=== PATIENT | female | born 1945 | race Caucasian/White ===

== ENCOUNTER 2020-04-14 22:50 | Emergency (ER) | payer MEDICARE, SELFPAY ==
[2020-04-14 22:51] VITALS: BP 149/75; PULSE 57; RESP 18; TEMP 36.3; O2SAT 99; BMI 24.2
--- NOTE | 2020-04-14 23:03 | CT_ITS ---
STUDY: CT ABDOMEN AND PELVIS WITHOUT CONTRAST REASON FOR EXAM: Female, 74 years old. LOW ABDOMEN PAIN,UTI DX 3 DAYS AG RADIATION DOSAGE (If Supplied By Facility): CTDIvol = ( 6.29 ) mGy, DLP = ( 322.37 ) mGycm TECHNIQUE: Transaxial images were obtained from the dome of the diaphragm to the symphysis pubis without oral contrast, and without intravenous contrast. Sagittal and coronal images were reconstructed. Individualized dose optimization techniques were used for this CT. COMPARISON: None. FINDINGS: There is pneumoperitoneum which raises suspicion of perforated bowel. There is thickening of the stomach antrum with pockets of air in the vicinity suggesting perforated gastric ulcer. Small bowel is unremarkable. Appendix is not identified. Liver, gallbladder, pancreas and spleen are unremarkable. Adrenal glands and kidneys are unremarkable. Uterus is intact. There is a small amount of ascites. There is NO abscess. Images of the lower thorax demonstrate atelectasis at the lung bases. There is a calcified granuloma at the RIGHT lung base measuring [address]/Abdomen/Pelvis without Cont IMPRESSION: There is pneumoperitoneum which raises suspicion of perforated bowel. There is thickening of the stomach antrum with pockets of air in the vicinity suggesting perforated gastric ulcer. Small bowel is unremarkable. There is diverticulosis of the sigmoid and LEFT colon. There is NO diverticulitis or colitis. Appendix is not identified. There is a small amount of ascites. There is NO abscess. N.B. : The above information has been verbally conveyed by Rubio Shaw MD to Dilip Olguin MD, on 04/15/2020 00:32:20 (ET). Electronically Signed: Rubio Shaw MD at 0:34 EDT , Service support ,
--- NOTE | 2020-04-14 23:04 | ED.VIS.GEN ---
History of Present Illness Chief Complaint: Abd Pain Narrative: This is a 74-year-old female who presents with abdominal pain. Patient does have a history of dementia and family provides much of the history. Patient has had about 2 to 3 days of intermittent colicky lower abdominal pain. She was seen at an urgent care. She was diagnosed with a UTI and prescribed Macrobid. No fevers. No vomiting or diarrhea. Her pain was worse tonight so she was brought in. Past Medical History - Allergies and Home Meds Allergies/Adverse Reactions: Allergies Penicillins Allergy (Intermediate, Verified 04/14/20 22:52) Hives clindamycin Adverse Reaction (Verified 04/14/20 22:52) Vomiting Primary Care Physician: Care Physician,No Primary [NON-STAFF] - Past Medical History: - - Hypertension, hyperlipidemia, dementia Smoking Status: Never smoker Review of Systems All systems negative except as indicated General: Denies: Fever Cardiovascular: Denies: Chest pain Respiratory: Denies: Dyspnea Gastrointestinal: Reports: Abdominal pain. Denies: Nausea, Vomiting, Diarrhea Genitourinary: Reports: Dysuria Musculoskeletal: Denies: Myalgias, Arthralgias Skin: Denies: Rash Neurological: Denies: Headache Physical Exam Vital Signs/Narrative: Vital Signs Temp Pulse Resp BP Pulse Ox 04/14/20 22:51 97.4 F L 57 L 18 149/75 H 99 Inital Vital Signs reviewed: Yes General: Well nourished Head: Normocephalic Eyes: EOMI ENT: Moist mucous membranes Neck: Supple Cardiovascular: Regular rate, Regular rhythm Respiratory: No distress, CTA bilaterally Abdomen: Soft, - - Patient has diffuse abdominal tenderness which is most pronounced in the suprapubic region, no guarding, no rebound, nondistended Skin: Normal color Neurological: Alert Psychological: Normal affect Diagnostic/Tx/Re-eval Impressions Abdomen/Pelvis CT 04/14/20 23:03 IMPRESSION: There is pneumoperitoneum which raises suspicion of perforated bowel. There is thickening of the stomach antrum with pockets of air in the vicinity suggesting perforated gastric ulcer. Small bowel is unremarkable. There is diverticulosis of the sigmoid and LEFT colon. There is NO diverticulitis or colitis. Appendix is not identified. There is a small amount of ascites. There is NO abscess. N.B. : The above information has been verbally conveyed by Rubio Shaw MD to Dilip Olguin MD, on 04/15/2020 00:32:20 (ET). Electronically Signed: Rubio Shaw MD at 0:34 EDT , Service support , ADDENDUM: 04/15/20 0041 IMPRESSION: There is pneumoperitoneum which raises suspicion of perforated bowel. There is thickening of the stomach antrum with pockets of air in the vicinity suggesting perforated gastric ulcer. Small bowel is unremarkable. There is diverticulosis of the sigmoid and LEFT colon. There is NO diverticulitis or colitis. Appendix is not identified. There is a small amount of ascites. There is NO abscess. N.B. : The above information has been verbally conveyed by Rubio Shaw MD to Dilip Olguin MD, on 04/15/2020 00:32:20 (ET). Electronically Signed: Rubio Shaw MD at 0:34 EDT , Service support , 04/14/20 23:03 Abdomen/Pelvis without Cont [CT] Stat Laboratory Results 04/14/20 04/14/20 04/14/20 23:25 23:25 23:35 WBC 8.6 RBC 4.06 L Hgb 12.5 Hct 37.7 MCV 92.9 MCH 30.8 MCHC 33.2 RDW Std Deviation 42.8 RDW Coeff of Jonathan 12.6 Plt Count 202 MPV 10.4 Immature Gran % (Auto) 0.200 Neut % (Auto) 80.8 H Lymph % (Auto) 14.9 L [place] % (Auto) 3.1 Eos % (Auto) 0.8 Baso % (Auto) 0.2 Absolute Neuts (auto) 7.0 Absolute Lymphs (auto) 1.28 Nucleated RBC % 0 Sodium 141 Potassium 4.0 Chloride 105 Carbon Dioxide 29.0 Anion Gap 7 BUN 26 H Creatinine 0.86 Estim Creat Clear Calc 49.56 Est GFR (MDRD) Af Amer 83 Est GFR (MDRD) Non-Af 69 BUN/Creatinine Ratio 30.4 H Glucose 110 H Calcium 8.8 Total Bilirubin 1.40 H AST 23 ALT 22 Alkaline Phosphatase 87 Total Protein 6.6 Albumin 3.5 Globulin 3.1 Albumin/Globulin Ratio 1.1 Lipase 352 Urine Color Yellow Urine Clarity Clear Urine pH 6.5 Ur Specific [place] 1.010 Urine Protein Negative Urine Glucose (UA) Normal Urine Ketones 15 H Urine Occult Blood 25 H Urine Nitrite Negative Urine Bilirubin Negative Urine Urobilinogen Normal Ur Leukocyte Esterase 500 H Urine RBC 0 SEEN Urine WBC 5-10 SEEN Ur Squamous Epith Cells 0 SEEN Ur Transition Epith Cell 5-10 SEEN Urine Bacteria 0 SEEN Urine Mucus 0 SEEN - Medical Decision Making Labs are unremarkable as above. CT shows pneumoperitoneum and findings most suggestive of a perforated peptic ulcer. Patient was given IV Cipro and Flagyl. I spoke to Dr. Leggett who is on-call for general surgery. He requested that we transfer the patient. I spoke to the [facility] transfer line and patient was accepted by Dr. Li. Patient will be transferred ER to ER. ED Disposition - Plan for ED Patient: Disposition: [facility] Diagnosis: Perforated peptic ulcer Referrals: Care Physician,No Primary [NON-STAFF] -
[2020-04-14] MEDS: 0.9% Normal Saline 1,000 ML 1000 ML IV (23:32)
[2020-04-14 23:42] LABS: Bacteria 0 SEEN /hpf (None Seen); Mucous, Urine 0 SEEN /hpf (<or=2+); Red Blood Cells-Urine 0 SEEN /hpf (0-5); Squamous Epithelial Cells - UA 0 SEEN /hpf (5-10)
[2020-04-14 23:44] LABS: Color, Urine Yellow (Yellow); Glucose, Dipstick Normal (Normal); Ketone-Dipstick 15 mg/dl (Negative); Leukocyte Esterase-Dipstick 500 /ul (Negative); Nitrite-Dipstick Negative (Negative); Occult Blood-Urine 25 /ul (Negative); Protein-Dipstick Negative (Negative); Urine Bilirubin Dipstick Negative (Negative); Urine Clarity Clear (Clear); Urine Urobilinogen Normal (Normal); Urine pH 6.5 (5.0 - 8.0)
[2020-04-14 23:54] LABS: Transitional Epithelial - Ur 5-10 SEEN /hpf (0-5); White Blood Cells 5-10 SEEN /hpf (0-5)
[2020-04-15] LABS: ALB/GLOB Ratio 1.1 RATIO (0.9-2.4); AST(SGOT) 23 U/L (15-37); Alanine Aminotransfer ALT/SGPT 22 U/L (13-56); Albumin, Serum 3.5 g/dL (3.2-5.0); Alkaline Phosphatase 87 U/L (45-117); Anion Gap 7 (5-15); BUN 26 mg/dL (7-18); BUN/Creat Ratio 30.4 RATIO (10-20); Calcium,Total 8.8 mg/dL (8.5-10.1); Chloride 105 mmol/L (98-107); Creatinine, Serum 0.86 mg/dL (0.55-1.02); EST Glomerular Filtration Rate 69 mL/min (>60); Est Glom Filt Rate - Afr Amer 83 mL/min (>60); Estimated Creatinine Clearance 49.56 ml/min; Globulin 3.1 g/dL (2.2-4.2); Glucose 110 mg/dL (74-106); Lipase 352 U/L (73-393); Protein, Total 6.6 g/dL (6.4-8.2); Sodium Level 141 mmol/L (136-145)
[2020-04-15 00:05] LABS: Absolute Lymphocyte Count 1.28 X10^3/uL (0.83-4.51); Basophil# 0.02 X10^3/uL; Basophil% 0.2 % (0-1); Eosinophil# 0.07 X10^3/uL; Eosinophils% 0.8 % (0-5); Hematocrit 37.7 % (37-47); Hemoglobin 12.5 g/dL (12.0-15.0); Lymphocyte # 1.28 X10^3/ul (4.0); Lymphocyte % 14.9 % (19-41); Mean Corp Hgb Conc 33.2 g/dL (32-36); Mean Corpuscular Hgb 30.8 pg (27.0-32.0); Mean Corpuscular Volume 92.9 fL (81-99); Mean Platelet Vol. 10.4 fl (6.2-12.0); Monocyte# 0.27 X10^3/uL; Monocyte% 3.1 % (0-10); NRBC Flagged by Analyzer 0 % (0-5); Neutrophil # 6.95 X10^3/uL (2.7-7.7); Neutrophil % 80.8 % (47-70); Platelet Count 202 K/mm3 (150-450); RBC Distribution Width CV 12.6 % (11.6-14.6); RBC Distribution Width SD 42.8 fl (35.1-43.9); Red Blood Count 4.06 M/mm3 (4.2-5.4); White Blood Count 8.6 K/mm3 (4.4-11.0)
[2020-04-15] MEDS: Ciprofloxacin 400 MG/200 ML BAG 200 MG IV (00:55)
[2020-04-15 01:03] VITALS: BP 128/61; PULSE 54; RESP 15; O2SAT 94
[2020-04-15] MEDS: metroNIDAZOLE 500 MG/100 ML BAG 100 MG IV (02:05)
[2020-04-15 03:48] VITALS: BP 117/59; PULSE 55; RESP 15; TEMP 36.8; O2SAT 95
== END 2020-04-15 03:48 | disposition short-term general hospital (02) ==
PROVIDERS: Emergency Provider Emergency Medicine; PCP Internal Medicine
DX: K27.5 Chronic or unspecified peptic ulcer, site unspecified, with perforation (principal)
CPT/HCPCS: 74176; 80053; 81001; 83690; 85025; 96365; 96366; 96367; 99284; J7030; A4216; J0744

== ENCOUNTER 2020-05-12 21:22 | Inpatient (IN) | payer MEDICARE, SELFPAY ==
[2020-05-12] VITALS (8 sets, daily range): BP systolic 127–131; BP diastolic 51–75; PULSE 68–73; RESP 16; TEMP 38.2–38.9; O2SAT 96–99; BMI 24.9
--- NOTE | 2020-05-12 21:35 | EKG12_ITS ---
Test Reason : DYSRHYTHMIA Blood Pressure : / mmHG Vent. Rate : 073 BPM Atrial Rate : 073 BPM P-R Int : 188 ms QRS Dur : 098 ms QT Int : 408 ms P-R-T Axes : 067 082 022 degrees QTc Int : 449 ms Normal sinus rhythm Low voltage QRS Borderline ECG Confirmed by STEVIE PINK, NICKY ([id number]), material expeditor SANDRA NOLAN ([id number]) on 05/15/2020 1:09:39 PM Referred By: [facility] Confirmed By:NICKY HUBBARD MD
--- NOTE | 2020-05-12 21:49 | ED.DCSUM_ITS ---
History of Present Illness Chief Complaint: Alt LOC Informant: Family Limited by: Dementia Onset: - - Has not eaten well for the past 2 days. Decreased urine output. Context: Sudden Onset Timing: Continuous Quality: Change in behavior Location: Generalized Current Severity: - - Unable to determine since patient has dementia unable to determine since patient has dementia Maximum Severity: - - Unable to determine since patient has dementia Worsened by: Unable to determine Relieved by: Unable to determine Associated Symptoms: Unable to determine Narrative: Patient is 74-year-old woman who underwent laparoscopic surgery to repair a perforated ulcer. She was diagnosed with urinary tract infection postoperatively. She has had 8 loose watery stools since April 20. Dr. green not notify surgeon. History is limited because patient has dementia. The informant is the daughter. Prior similar symptoms: Yes Recent Illness/Hospitalization: Yes - Past Medical History (1) History of hypercholesterolemia Status: Acute (2) History of hypertension Status: Acute (3) History of peptic ulcer disease Status: Acute (4) Perforated ulcer Status: Acute Past Medical History - Allergies and Home Meds Allergies/Adverse Reactions: Allergies Penicillins Allergy (Intermediate, Verified 04/15/20 03:56) Hives clindamycin Adverse Reaction (Verified 04/15/20 03:56) Vomiting Primary Care Physician: Veronika Austin MD [Primary Care Provider] - Prior records reviewed: Yes Surgical History: - - Laparoscopic repair of perforated ulcer Lives: With Family Smoking Status: Never smoker Review of Systems ROS: Unable to Obtain Physical Exam Vital Signs/Narrative: Vital Signs Temp Pulse Resp BP Pulse Ox 05/12/20 21:37 100.8 F H 70 16 131/75 H 99 05/12/20 21:23 100.8 F H 70 16 131/75 H 99 Inital Vital Signs reviewed: Yes General: Well nourished, Well developed, No Acute Distress Head: Normocephalic, Atraumatic Eyes: Perrl, EOMI. Negative for: Pale conjunctiva, Scleral icterus ENT: No rhinorrhea, Dry mucous membranes Neck: Supple - ., Nontender, No lymphadenopathy, No JVD Cardiovascular: Regular rate, Regular rhythm, No murmurs, Normal S1, Normal S2 Respiratory: No distress, CTA bilaterally, Chest nontender, Diminished Abdomen: Soft, Nontender, Nondistended, Normal bowel sounds, No masses - Return instructions Rectal: Deferred Back: Nontender, Normal Inspection. Negative for: CVA tenderness Extremities: Nontender, No edema Skin: Normal color, No rash, No Trauma. Negative for: Cyanosis, Diaphoresis, Jaundice Neurological: Alert, Cranial nerves II-XII grossly intact, Normal Strength, Normal Sensation. Negative for: Oriented x3 Psychological: Normal affect Diagnostic/Tx/Re-eval Impressions Chest X-Ray 05/12/20 22:52 IMPRESSION: No acute cardiopulmonary process. Electronically Signed: Ruma Rodriguez MD at 23:06 EDT Tel , Service support , 05/12/20 22:52 Chest 1 View (Portable) [RAD] Stat 05/12/20 23:22 Abdomen/Pelvis W IV Cont ONLY [CT] Stat Laboratory Results 05/12/20 05/12/20 05/12/20 21:50 21:50 21:50 WBC 7.1 RBC 3.74 L Hgb 11.2 L Hct 34.7 L MCV 92.8 MCH 29.9 MCHC 32.3 RDW Std Deviation 46.2 H RDW Coeff of Jonathan 13.4 Plt Count 158 MPV 10.8 Immature Gran % (Auto) 0.600 Neut % (Auto) 75.1 H Lymph % (Auto) 11.3 L [place] % (Auto) 12.3 H Eos % (Auto) 0.1 Baso % (Auto) 0.6 Absolute Neuts (auto) 5.3 Absolute Lymphs (auto) 0.80 L Nucleated RBC % 0 PT 14.4 INR 1.2 APTT 33.1 Sodium 136 Potassium 3.2 L Chloride 101 Carbon Dioxide 28.0 Anion Gap 7 BUN 20 H Creatinine 0.77 Estim Creat Clear Calc 42.62 Est GFR (MDRD) Af Amer 94 Est GFR (MDRD) Non-Af 78 BUN/Creatinine Ratio 26.0 H Glucose 133 H Lactic Acid Calcium 8.5 Total Bilirubin 2.20 H AST 19 ALT 10 L Alkaline Phosphatase 60 Total Protein 6.6 Albumin 3.1 L Globulin 3.5 Albumin/Globulin Ratio 0.9 Urine Color Urine Clarity Urine pH Ur Specific [place] Urine Protein Urine Glucose (UA) Urine Ketones Urine Occult Blood Urine Nitrite Urine Bilirubin Urine Urobilinogen Ur Leukocyte Esterase Urine RBC Urine WBC Ur Squamous Epith Cells Amorphous Sediment Urine Bacteria Urine Mucus Urine Yeast 05/12/20 05/12/20 21:50 22:15 WBC RBC Hgb Hct MCV MCH MCHC RDW Std Deviation RDW Coeff of Jonathan Plt Count MPV Immature Gran % (Auto) Neut % (Auto) Lymph % (Auto) [place] % (Auto) Eos % (Auto) Baso % (Auto) Absolute Neuts (auto) Absolute Lymphs (auto) Nucleated RBC % PT INR APTT Sodium Potassium Chloride Carbon Dioxide Anion Gap BUN Creatinine Estim Creat Clear Calc Est GFR (MDRD) Af Amer Est GFR (MDRD) Non-Af BUN/Creatinine Ratio Glucose Lactic Acid 1.0 Calcium Total Bilirubin AST ALT Alkaline Phosphatase Total Protein Albumin Globulin Albumin/Globulin Ratio Urine Color Yellow Urine Clarity Sl. Cloudy Urine pH 7.0 Ur Specific [place] 1.010 Urine Protein 30 H Urine Glucose (UA) Normal Urine Ketones 50 H Urine Occult Blood 50 H Urine Nitrite Negative Urine Bilirubin Negative Urine Urobilinogen Normal Ur Leukocyte Esterase 25 H Urine RBC 0-5 SEEN Urine WBC 0-5 SEEN Ur Squamous Epith Cells 0-5 SEEN Amorphous Sediment 1+ PHOS Urine Bacteria 0 SEEN Urine Mucus 0 SEEN Urine Yeast RARE Urinalysis is unremarkable. Basic metabolic panel is unremarkable. Total bilirubin is slightly elevated 2.2. Liver enzymes are normal. White count is normal. Chest x-ray reveals no obvious infiltrate. Since patient is postop 3 weeks due to perforated ulcer will obtain CT of the abdomen to evaluate for abscess. Patient was initially treated with levofloxacin. Also this may represent colitis due to C. difficile. COMPARISON: 04/14/2020 FINDINGS: LOWER THORAX: No consolidation or pleural effusion. Mild basilar atelectasis. Calcified right middle lobe granuloma appears similar. LIVER: No concerning focal lesion. GALLBLADDER: No radiopaque calculi. BILE DUCTS: No significant biliary dilatation. SPLEEN: Unremarkable. PANCREAS: Unremarkable. ADRENAL GLANDS: Unremarkable. KIDNEYS/URETERS: Unremarkable. BOWEL: No bowel obstruction. No significant bowel wall thickening. No localized inflammation. Colonic diverticulosis. APPENDIX: Normal. FREE FLUID: No significant free fluid. FREE AIR: None. LYMPH NODES: No pathologic appearing adenopathy. PERITONEUM, RETROPERITONEUM AND MESENTERY: Otherwise unremarkable. VASCULATURE: Unremarkable as imaged. PELVIS: Bladder decompressed by Garcia catheter. No pelvic mass. ABDOMINAL WALL: Unremarkable. OSSEOUS AND SOFT TISSUE STRUCTURES: Compression deformities at L3 and L4 with mild loss of height, similar to previous. Degenerative changes. CT/Abdomen/Pelvis W IV Cont ONLY IMPRESSION: No acute abdominopelvic abnormality. Individualized dose optimization techniques were used for this CT. at 0010 Reported and signed by: Yolis Lucas MD Electronically Signed: Yolis Lucas MD at 0:10 EDT Tel , Service support , - EKG Initial EKG Interpretation: Sinus Rhythm - Normal sinus rhythm with a ventricular rate of 73. IL interval is 108 ms. QRS duration 98 ms. QT duration 408 ms. [place] is normal. There is evidence of low voltage. No acute ischemic changes noted. - Medical Decision Making With elevated fever and change in behavior need to rule out sepsis. He developed pneumonia versus urinary tract infection. With reported history of 8 loose watery stools per day need to rule out infectious diarrhea and specifically pseudomembranous enterocolitis. Review of CT of the abdomen with IV contrast reveals no obvious abnormality. Since source of fever is unknown patient received dose of meropenem and vancomycin. She initially was treated with levofloxacin because history of recurrent urinary tract infection and recent urinary tract infection. Once the CAT scan has been read will contact hospitalist since this is not a postop complication. ED Disposition - Plan for ED Patient: Disposition: [facility] Diagnosis: FUO (fever of unknown origin), Change in mental status, History of dementia Referrals: Veronika Austin MD [Primary Care Provider] -
[2020-05-12 22:05] LABS: Absolute Neutrophil Count 5.3 X10^3/uL (2.0-7.7); Basophil# 0.04 X10^3/uL; Basophil% 0.6 % (0-1); Eosinophil# 0.01 X10^3/uL; Eosinophils% 0.1 % (0-5); Hematocrit 34.7 % (37-47); Hemoglobin 11.2 g/dL (12.0-15.0); Lymphocyte % 11.3 % (19-41); Mean Corp Hgb Conc 32.3 g/dL (32-36); Mean Corpuscular Hgb 29.9 pg (27.0-32.0); Mean Corpuscular Volume 92.8 fL (81-99); Mean Platelet Vol. 10.8 fl (6.2-12.0); Monocyte# 0.87 X10^3/uL; Monocyte% 12.3 % (0-10); NRBC Flagged by Analyzer 0 % (0-5); Neutrophil # 5.29 X10^3/uL (2.7-7.7); Neutrophil % 75.1 % (47-70); Platelet Count 158 K/mm3 (150-450); RBC Distribution Width CV 13.4 % (11.6-14.6); RBC Distribution Width SD 46.2 fl (35.1-43.9); Red Blood Count 3.74 M/mm3 (4.2-5.4); White Blood Count 7.1 K/mm3 (4.4-11.0)
[2020-05-12 22:16] LABS: ALB/GLOB Ratio 0.9 RATIO (0.9-2.4); AST(SGOT) 19 U/L (15-37); Alanine Aminotransfer ALT/SGPT 10 U/L (13-56); Albumin, Serum 3.1 g/dL (3.2-5.0); Alkaline Phosphatase 60 U/L (45-117); Anion Gap 7 (5-15); BUN 20 mg/dL (7-18); Calcium,Total 8.5 mg/dL (8.5-10.1); Chloride 101 mmol/L (98-107); Creatinine, Serum 0.77 mg/dL (0.55-1.02); EST Glomerular Filtration Rate 78 mL/min (>60); Est Glom Filt Rate - Afr Amer 94 mL/min (>60); Estimated Creatinine Clearance 42.62 ml/min; Globulin 3.5 g/dL (2.2-4.2); Glucose 133 mg/dL (74-106); Potassium 3.2 mmol/L (3.5-5.1); Protein, Total 6.6 g/dL (6.4-8.2); Sodium Level 136 mmol/L (136-145)
[2020-05-12 22:20] LABS: International Normalized Ratio 1.2; Prothrombin Time (Protime)PT. 14.4 SECONDS (11.7-14.9)
[2020-05-12 22:21] LABS: Partial Thromboplast Time 33.1 Seconds (24.1-36.2)
[2020-05-12] MEDS: 0.9% Normal Saline 1,000 ML 150 ML IV (22:22)
[2020-05-12] MEDS: levoFLOXacin IV 750 MG/150 ML BAG 100 MG IV (22:26)
[2020-05-12 22:35] LABS: Bacteria 0 SEEN /hpf (None Seen); Mucous, Urine 0 SEEN /hpf (<or=2+)
[2020-05-12 22:36] LABS: Color, Urine Yellow (Yellow); Glucose, Dipstick Normal (Normal); Ketone-Dipstick 50 mg/dl (Negative); Leukocyte Esterase-Dipstick 25 /ul (Negative); Nitrite-Dipstick Negative (Negative); Occult Blood-Urine 50 /ul (Negative); Protein-Dipstick 30 mg/dl (Negative); Urine Bilirubin Dipstick Negative (Negative); Urine Clarity Sl. Cloudy (Clear); Urine Urobilinogen Normal (Normal)
[2020-05-12] MEDS: Acetaminophen 325 MG Tablet 650 MG PO (22:43)
[2020-05-12 22:44] LABS: Red Blood Cells-Urine 0-5 SEEN /hpf (0-5); Squamous Epithelial Cells - UA 0-5 SEEN /hpf (5-10); White Blood Cells 0-5 SEEN /hpf (0-5)
[2020-05-12 22:45] LABS: Amorphous Sediment 1+ PHOS; Yeast-Urine RARE /hpf (None Seen)
--- NOTE | 2020-05-12 22:52 | RAD_ITS ---
STUDY: X-RAY CHEST REASON FOR EXAM: Female, 74 years old. 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 Complaining of PAIN AND REDNESS TO LEFT KNEE. TECHNIQUE: Single frontal view of the chest. COMPARISON: CT of the abdomen and pelvis dated 04/14/2020 FINDINGS: There is no focal consolidation. Normal size heart. Normal mediastinum and pati. Normal visualized pulmonary arteries. There is atherosclerotic calcification of the aortic arch. Normal visualized thoracic spine. Normal visualized ribs, clavicles, and shoulders. There is no demonstrated abnormality of the visualized soft tissue structures of the upper abdomen. RAD/Chest 1 View (Portable) IMPRESSION: No acute cardiopulmonary process. Electronically Signed: Ruma Rodriguez MD at 23:06 EDT Tel , Service support ,
[2020-05-12] MEDS: Acetaminophen 650 MG Suppository RECTAL (22:57)
--- NOTE | 2020-05-12 23:22 | CT_ITS ---
HISTORY: FEVER, S/P PERFORATED ULCER LAPORSCOPIC SX, RECENT UTI, GENERAL WEAKNESS, AMS ADDITIONAL HISTORY: None provided. EXAMINATION/TECHNIQUE: CT Abdomen And Pelvis W/ Contrast Injection CONTRAST: 100 mL Isovue-370 IV contrast. Enteric contrast was not given. A radiation dose optimization technique was used for this scan. Number of images including paperwork: [id number] COMPARISON: 04/14/2020 FINDINGS: LOWER THORAX: No consolidation or pleural effusion. Mild basilar atelectasis. Calcified right middle lobe granuloma appears similar. LIVER: No concerning focal lesion. GALLBLADDER: No radiopaque calculi. BILE DUCTS: No significant biliary dilatation. SPLEEN: Unremarkable. PANCREAS: Unremarkable. ADRENAL GLANDS: Unremarkable. KIDNEYS/URETERS: Unremarkable. BOWEL: No bowel obstruction. No significant bowel wall thickening. No localized inflammation. Colonic diverticulosis. APPENDIX: Normal. FREE FLUID: No significant free fluid. FREE AIR: None. LYMPH NODES: No pathologic appearing adenopathy. PERITONEUM, RETROPERITONEUM AND MESENTERY: Otherwise unremarkable. VASCULATURE: Unremarkable as imaged. PELVIS: Bladder decompressed by Garcia catheter. No pelvic mass. ABDOMINAL WALL: Unremarkable. OSSEOUS AND SOFT TISSUE STRUCTURES: Compression deformities at L3 and L4 with mild loss of height, similar to previous. Degenerative changes. CT/Abdomen/Pelvis W IV Cont ONLY IMPRESSION: No acute abdominopelvic abnormality. Individualized dose optimization techniques were used for this CT. at 0010 Reported and signed by: Yolis Lucas MD Electronically Signed: Yolis Lucas MD at 0:10 EDT Tel , Service support ,
[2020-05-13] VITALS (11 sets, daily range): BP systolic 110–141; BP diastolic 47–65; PULSE 58–76; RESP 14–18; TEMP 36.6–38.3; O2SAT 95–99; BMI 32.1; BMI 32.2
--- NOTE | 2020-05-13 00:15 | PCM.HP.STD ---
Problem List (1) FUO (fever of unknown origin) Status: Acute (2) Anxiety and depression Status: Chronic (3) History of hypercholesterolemia Status: Chronic (4) History of hypertension Status: Chronic (5) Perforated ulcer Status: Resolved (6) History of dementia Status: Chronic History of Present Illness Date of Admission: 05/13/20 Chief Complaint: Fever, altered mental status above baseline. The patient is a 74 y/o F w/ PMHx: Dementia unclear type without behavioral disturbance history, Anxiety and Depression, HLD, GERD with a history of a perforated ulcer status post laparoscopic surgical repair recently who presents to the [facility] ED on 05/12/20 with history of increased generalized weakness and ongoing over the last 48 hours increased altered mental status above baseline worse since approximately 1900 on 05/12/2020 with concurrently reported loose watery stools intermittently since operative intervention. Family reports that she was taking 3 oral antibiotics following her operative intervention but she has difficulty with oral intake and will often spit her pills out.. Per family patient has not been eating well with decreased urine output secondary to also decreased oral intake. Family specifically notes that she has been stooling at least 8-10 times per day, loose prompting her to reduce her oral intake as she is afraid of having accidents. Only other complaint per patient is left knee pain which is chronic with severe osteoarthritis with knee replacement recommended however family decision to defer given severe dementia. Work-up in the ED included T 100.8, heart rate 70, BP 131/75, respiratory rate 16, 99% on room air, T-max while in the ED 101.9, CBC with WBC 7.1, hemoglobin 0.2, platelet 158 without market shift, noted lymphopenia concurrently, unremarkable coags, CMP with potassium 3.2, BUN/creatinine 20/0.77, glucose 133, lactic acid 1.0, total bilirubin 2.20, AST/ALT 19/10, urinalysis with no obvious evidence of UTI with noted specific gravity 1.010, protein 30, ketone 50, occult blood 50, negative nitrite, leukocyte esterase 25, 0 urine WBCs, 0 urine bacteria, blood culture x2 pending per ED, urine culture pending per ED, chest x-ray with no acute cardiopulmonary findings, CT abdomen and pelvis with no acute abdominopelvic abnormality. In the ED patient administered meropenem and vancomycin is unclear etiology of fever and recent operative intervention. Past Medical History Past Medical History (Chronic Problems): Chronic Problems History of hypercholesterolemia (Chronic) History of hypertension (Chronic) History of dementia (Chronic) Anxiety and depression (Chronic) Allergies Penicillins Allergy (Intermediate, Verified 04/15/20 03:56) Hives clindamycin Adverse Reaction (Verified 04/15/20 03:56) Vomiting Home Medications: Ambulatory Orders Medication Instructions Recorded Hydrochlorothiazide [Hctz] 25 mg PO DAILY 07/28/13 Simvastatin [Zocor] 20 mg PO QHS 07/28/13 Donepezil HCl [Aricept] 5 mg PO QHS 05/12/20 Escitalopram Oxalate [Lexapro] 20 mg PO DAILY 05/12/20 Memantine HCl [Namenda Xr] 28 mg PO DAILY 05/12/20 Surgical History: - - Laparoscopic repair of perforated ulcer. 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 Smoking Status: Never smoker Tobacco Use: Non-smoker Alcohol: None Drugs: None - *Family History Maternal History Items: Heart Disease Paternal History Items: Heart Disease Review of Systems Constitutional: Reports: Anorexia, Fever - Upon ED presentation and by EMS but not prior to this., Malaise, Weakness, Fatigue. Denies: Chills, Weight Change HEENT: Denies: Head Aches, Sinus Congestion, Sinus Drainage Cardiovascular: Denies: Chest Pain, Chest Pressure, Chest Tightness, Light Headedness, Orthopnea, Palpitations, Syncope Respiratory: Denies: Cough, Shortness of Breath, Shortness of breath at rest, Shortness of breath upon exertion, Sputum production, Wheezing Gastrointestinal: Reports: Diarrhea. Denies: Abdominal Pain, Nausea, Vomiting Genitourinary: Denies: Dysuria Musculoskeletal: Reports: Joint Pain. Denies: Joint Tenderness Skin: Denies: Rash, Wounds Neurological: Reports: Confusion. Denies: Focal weakness, Numbness, Tingling Psychiatric: Reports: Anxiety, Depression. Denies: Homicidal Ideations, Suicidal Ideations Hematologic/ Lymphatic: Denies: Easy Bruising, Easy Bleeding VTE Information - Inpt Only VTE Present on Admission: No VTE Mechan Device Prophylaxis: SCD's VTE Pharm Prophylaxis ordered?: Yes Patient Problems: Active and Suspected Problems FUO (fever of unknown origin) (Acute) Change in mental status (Acute) Subjective: Patient seated upright in the ED bed, no acute distress, pleasant. Objective: Physical Examination: General: awake, alert, oriented oriented to herself and her daughter but unable to discern month, date, year or any current information which is chronic, remains cooperative, seated upright in the ED bed, no acute distress. Skin: normal color, turgor, no icterus, cyanosis. HEENT: AT/NC, EOMI, PERRLA, dry MM, no carotid bruits or JVD noted. Lungs: CTA bilaterally, moderate effort, mild decrease BL bases, no rales, ronchi or wheezing. Heart: Regular rate and rhythm; no gallop, rub audible. Abdomen: soft, NTTP, ND, hyperactive BS, no HSM. Extremities: no cyanosis, clubbing, or edema. Neurological: patient awake, alert, oriented as noted; cognitive function currently intact per discussion with daughter, severely reduced baseline with severe dementia; pupils equally reactive to light and accomodation; cranial nerves II-XII grossly normal, moving all 4 extremities, no focal deficits, strength improved since initial ED presentation per discussion with daughter, mild Daniel to moderately global decrease. Psychiatric: affect appears mildly fatigued otherwise normal, no acute evidence of depressive or anxiety feelings. - Physical Exam Vitals/I&O's: Vital Signs Temp Pulse Resp BP Pulse Ox 101.9 F H 73 16 129/52 H 98 05/12/20 23:05 05/12/20 23:05 05/12/20 23:05 05/12/20 23:05 05/12/20 23:05 Oxygen Delivery Method Room Air Weight: 145 lb 1.027 oz Body Mass Index (BMI) 24.9 Finger Stick Blood Glucose 168 Intake and Output for Last 24 Hours 05/11/20 05/12/20 05/13/20 23:59 23:59 23:59 Intake Total 150 / 150 Balance 150 / 150 Laboratory Results 05/12/20 21:50: WBC 7.1, RBC 3.74 L, Hgb 11.2 L, Hct 34.7 L, MCV 92.8, MCH 29.9, MCHC 32.3, RDW Std Deviation 46.2 H, RDW Coeff of Jonathan 13.4, Plt Count 158, MPV 10.8, Immature Gran % (Auto) 0.600, Neut % (Auto) 75.1 H, Lymph % (Auto) 11.3 L, Holmes % (Auto) 12.3 H, Eos % (Auto) 0.1, Baso % (Auto) 0.6, Absolute Neuts (auto) 5.3, Absolute Lymphs (auto) 0.80 L, Nucleated RBC % 0 05/12/20 21:50: PT 14.4, INR 1.2, APTT 33.1 05/12/20 21:50: Sodium 136, Potassium 3.2 L, Chloride 101, Carbon Dioxide 28.0, Anion Gap 7, BUN 20 H, Creatinine 0.77, Estim Creat Clear Calc 42.62, Est GFR (MDRD) Af Amer 94, Est GFR (MDRD) Non-Af 78, BUN/Creatinine Ratio 26.0 H, Glucose 133 H, Calcium 8.5, Total Bilirubin 2.20 H, AST 19, ALT 10 L, Alkaline Phosphatase 60, Total Protein 6.6, Albumin 3.1 L, Globulin 3.5, Albumin/Globulin Ratio 0.9 05/12/20 21:50: Lactic Acid 1.0 05/12/20 22:15: Urine Color Yellow, Urine Clarity Sl. Cloudy, Urine pH 7.0, Ur Specific [place] 1.010, Urine Protein 30 H, Urine Glucose (UA) Normal, Urine Ketones 50 H, Urine Occult Blood 50 H, Urine Nitrite Negative, Urine Bilirubin Negative, Urine Urobilinogen Normal, Ur Leukocyte Esterase 25 H, Urine RBC 0-5 SEEN, Urine WBC 0-5 SEEN, Ur Squamous Epith Cells 0-5 SEEN, Amorphous Sediment 1+ PHOS, Urine Bacteria 0 SEEN, Urine Mucus 0 SEEN, Urine Yeast RARE Current Medications Sodium Chloride () 1,000 mls @ 150 mls/hr IV .[id number] JELANI Last Admin: 05/12/20 22:22 Dose: 150 mls/hr Documented by: Meropenem 1 gm/ Sodium (Chloride) 120 mls @ 200 mls/hr IV X1 ONE Stop: 05/13/20 00:21 Vancomycin HCl 1,750 mg/ (Sodium Chloride) 535 mls @ 250 mls/hr IV X1 ONE Stop: 05/13/20 02:18 Assessment/Plan All Active Problems History of peptic ulcer disease (Acute) Perforated ulcer (Resolved) FUO (fever of unknown origin) (Acute) Change in mental status (Acute) The patient is a 74 y/o F w/ PMHx: Dementia unclear type without behavioral disturbance history, Anxiety and Depression, HLD, GERD with a history of a perforated ulcer status post laparoscopic surgical repair recently who presents to the [facility] ED on 05/12/20 with history of recent urinary tract infection with treatment with generalized weakness and ongoing increased altered mental status above baseline worse since approximately 1900 on 05/12/2020 with concurrently reported loose watery stools intermittently since operative intervention. 1. Fever Unclear Etiology: Patient with no market WBC elevation or left shift but noted lymphopenia, lactic acid normal, urinalysis not marked appearing, CT abdomen and pelvis with no acute abdominopelvic abnormality, blood culture x2 pending per ED, urine culture pending per ED. Patient with recent operative intervention although CT scan unremarkable therefore lower suspicion is etiology per ED physician with requested admission for further evaluation. Will admit to medical surgical floor, maintain on fall and aspiration precautions, continue judicious hydration, obtain stool cultures given reported episodes of loose stools including C. difficile given recent surgery and antibiotic therapies, given recent antibiotic therapy administration in the ED with vancomycin and meropenem will hold on repeat dosing and await stool results. Additionally obtain respiratory viral panel, procalcitonin and COVID type lab markers. If evidence of C. difficile would initiate oral vancomycin therapy. If no obvious concerns upon stools assessment will plan to resume prophylactic abx coverage with vanc and meropenem given allergies. PT, OT, case management consultations in addition to nutrition given poor oral intake history. Additionally given history with recent tertiary facility placement and intervention will obtain COVID testing which was discussed with the ED physician and will be obtained in the ED with plan admission to COVID unit if positive versus medical surgical floor if negative. 2. Recent history of ruptured peptic ulcer status post operative intervention: Patient initially presented on 04/14/2020 to the ED with complaints of suprapubic discomfort and abdominal pain ongoing initially treated by urgent care with Macrobid for UTI however at that time ED physician did obtain CT scan which demonstrated evidence of pneumoperitoneum and patient was transferred for further evaluation to tertiary facility. With following history of recent laparoscopic repair of a ruptured peptic ulcer per report, CT abdomen and pelvis with no obvious acute abdominopelvic abnormality, continue Protonix regimen although if patient positive C. difficile may necessitate hold on this agent. 3. Hypokalemia: Admission K+ 3.2, magnesium level requested, supplementation given, repeat level in AM. 4. Dementia, Alzheimer's with no behavioral disturbance history: We will continue patient home Aricept, Namenda regimen, complicates presentation as patient is very poor informant and unable to discern if anything is specifically bothering her. 5. Anxiety and depression: We will continue patient home Lexapro regimen. 6. Hypertension: We will hold patient hydrochlorothiazide given recent poor oral intake history and plan judicious hydration, PRN IV hydralazine. 7. Hyperlipidemia: Continue home statin regimen. 8. DVT prophylaxis: SCDs, Lovenox cautiously given history. 9. CODE status: Patient TURNER is her and living will is not in place per discussion with daughter. Discussed CODE status at length including difference between FULL code, DNR-CCA and DNR-CC status. Following discussions about the differences in these status, requested full CODE STATUS but there is nothing specifically clarified with her father and recommended that as a family they just discussed these items and if any change to the status to notify the hospital. Advanced Care Planning Face to Face Time: 16 minutes. OBSV E&M: 08720 Initial observation care L3 Procedures: 70770 Advncd Care Plan 30 Min
[2020-05-13 01:51] LABS: Probe Check PASS; Specimen Processing Control PASS
[2020-05-13 03:04] LABS: Ferritin 163 ng/mL (8-252); LDH 176 U/L (84-246); Magnesium 1.8 mg/dL (1.6-2.6)
[2020-05-13 03:23] LABS: Procalcitonin 0.34 ng/mL (0.00-0.09)
[2020-05-13] MEDS: Potassium Chloride 10mEq/100mL 10 MEQ/100 ML IV.SOLN. 100 MEQ IV BOLUS ×4 (03:24→06:46)
[2020-05-13] MEDS: 0.9% Normal Saline 1,000 ML 100 ML IV ×2 (03:24→14:40)
[2020-05-13 05:45] LABS: M R Staph aureus DNA By PCR Negative (Negative); Probe Check PASS; Specimen Processing Control PASS
--- NOTE | 2020-05-13 05:55 | RAD_ITS ---
HISTORY: Dyspnea, cough. ADDITIONAL HISTORY: None provided. EXAMINATION/TECHNIQUE: XR Chest 1 View AP/PA Number of images including paperwork: 1 COMPARISON: 05/12/2020 FINDINGS: LUNGS AND PLEURA: No consolidation, mass or pleural effusion. Minimal left basilar subsegmental atelectasis versus scarring, decreased. Right middle lobe granuloma, better seen on previous abdominal CT scans. CARDIAC SILHOUETTE: Stable. MEDIASTINUM AND MIMA: Stable. UPPER ABDOMEN: Unremarkable. SKELETON AND SOFT TISSUES: No acute skeletal findings. OTHER DEVICES AND HARDWARE: None. RAD/Chest 1 View (Portable) IMPRESSION: No acute cardiopulmonary abnormality. at 0621 Reported and signed by: Yolis Lucas MD Electronically Signed: Yolis Lucas MD at 6:20 EDT Tel , Service support ,
[2020-05-13 07:14] LABS: Absolute Lymphocyte Count 0.91 X10^3/uL (0.83-4.51); Absolute Neutrophil Count 5.1 X10^3/uL (2.0-7.7); Basophil# 0.04 X10^3/uL; Basophil% 0.6 % (0-1); Eosinophil# 0.04 X10^3/uL; Eosinophils% 0.6 % (0-5); Hematocrit 36.7 % (37-47); Hemoglobin 11.2 g/dL (12.0-15.0); Lymphocyte # 0.91 X10^3/ul (4.0); Lymphocyte % 13.1 % (19-41); Mean Corp Hgb Conc 30.5 g/dL (32-36); Mean Corpuscular Hgb 29.6 pg (27.0-32.0); Mean Corpuscular Volume 97.1 fL (81-99); Mean Platelet Vol. 10.6 fl (6.2-12.0); Monocyte# 0.81 X10^3/uL; Monocyte% 11.7 % (0-10); NRBC Flagged by Analyzer 0 % (0-5); Neutrophil # 5.11 X10^3/uL (2.7-7.7); Neutrophil % 73.7 % (47-70); Platelet Count 137 K/mm3 (150-450); RBC Distribution Width CV 13.3 % (11.6-14.6); RBC Distribution Width SD 48.1 fl (35.1-43.9); Red Blood Count 3.78 M/mm3 (4.2-5.4); White Blood Count 6.9 K/mm3 (4.4-11.0)
--- NOTE | 2020-05-13 07:35 | PCM.PN.BLA ---
Progress Note Patient is a 74-year-old lady with history of Alzheimer's disease, recent laparoscopic repair of a perforated peptic ulcer, recent treatment for UTI who was brought to the ED with low-grade fever and confusion. Admitted to regular nursing for further management 1. Acute febrile illness of undetermined etiology 2. Acute kidney injury 3. Hypokalemia 4. Recent laparoscopic repair of a perforated peptic ulcer 5. Recent treatment for UTI 6. Alzheimer's disease 7. Dyslipidemia 8. Depression with anxiety 9. DVT prophylaxis 10. Physical deconditioning Patient seen and examined her initial assessment including history and physical diagnostic data and management orders reviewed will follow.
[2020-05-13 08:41] LABS: ALB/GLOB Ratio 0.7 RATIO (0.9-2.4); AST(SGOT) 18 U/L (15-37); Alanine Aminotransfer ALT/SGPT 12 U/L (13-56); Albumin, Serum 2.5 g/dL (3.2-5.0); Alkaline Phosphatase 60 U/L (45-117); Anion Gap 9 (5-15); BUN 16 mg/dL (7-18); BUN/Creat Ratio 23.1 RATIO (10-20); Calcium,Total 8.4 mg/dL (8.5-10.1); Chloride 106 mmol/L (98-107); Creatinine, Serum 0.69 mg/dL (0.55-1.02); EST Glomerular Filtration Rate 88 mL/min (>60); Est Glom Filt Rate - Afr Amer 106 mL/min (>60); Estimated Creatinine Clearance 42.62 ml/min; Globulin 3.8 g/dL (2.2-4.2); Glucose 94 mg/dL (74-106); Potassium 3.5 mmol/L (3.5-5.1); Protein, Total 6.3 g/dL (6.4-8.2); Sodium Level 136 mmol/L (136-145)
[2020-05-13] MEDS: Enoxaparin 40 MG/0.4 ML Syringe SC (10:21)
[2020-05-13] MEDS: Memantine Hydrochloride 10 MG Tablet PO ×2 (10:22→21:53)
[2020-05-13] MEDS: Escitalopram Oxalate 20 MG Tablet PO (10:22)
[2020-05-13] MEDS: Pantoprazole Sodium 20 MG Tablet PO ×2 (10:22→21:53)
[2020-05-13] MEDS: oxyCODONE 5 MG Tablet PO (14:30)
[2020-05-13] MEDS: Acetaminophen 325 MG Tablet 650 MG PO (14:31)
--- NOTE | 2020-05-13 17:09 | RAD_ITS ---
STUDY: X-RAY - LEFT KNEE REASON FOR EXAM: Female, 74 years old. PAIN AND SWELLING IN LEFT KNEE ESPECIALLY TECHNIQUE: 2 view(s) of the knee. COMPARISON: None. FINDINGS: Normal visualized distal femur. Normal visualized proximal tibia and fibula. Normal proximal tibiofibular articulation. There is moderate degenerative arthrosis of the medial femorotibial compartment with moderate joint space narrowing. There is mild degenerative arthrosis of the lateral femorotibial compartment. There is moderate degenerative arthrosis of the patellofemoral articulation. There is a moderate volume joint effusion. The soft tissue structures are unremarkable. RAD/Knee 1 or 2 Views IMPRESSION: Degenerative arthrosis. Joint effusion. Electronically Signed: Ruma Rodriguez MD at 20:13 EDT Tel , Service support ,
--- NOTE | 2020-05-13 17:09 | RAD_ITS ---
STUDY: X-RAY - RIGHT KNEE REASON FOR EXAM: Female, 74 years old. PAIN AND SWELLING IN KNEE TECHNIQUE: 2 view(s) of the knee. COMPARISON: None. FINDINGS: Normal visualized distal femur. Normal visualized proximal tibia and fibula. Normal proximal tibiofibular articulation. There is mild to moderate degenerative arthrosis of the medial femorotibial compartment. Normal lateral femorotibial compartment. There is mild degenerative arthrosis of the patellofemoral articulation. There is a moderate volume joint effusion. The soft tissue structures are unremarkable. RAD/Knee 1 or 2 Views IMPRESSION: Degenerative arthrosis. Joint effusion. Electronically Signed: Ruma Rodriguez MD at 19:40 EDT Tel , Service support ,
[2020-05-13] MEDS: Donepezil HCl 5 MG Tablet PO (21:53)
[2020-05-13] MEDS: Atorvastatin Calcium 10 MG Tablet PO (21:53)
[2020-05-14] VITALS (9 sets, daily range): BP systolic 108–142; BP diastolic 51–61; PULSE 62–83; RESP 16–19; TEMP 37–38.5; O2SAT 92–98
[2020-05-14] MEDS: 0.9% Normal Saline 1,000 ML 100 ML IV (00:13)
[2020-05-14] MEDS: Acetaminophen 325 MG Tablet 650 MG PO ×2 (04:24→18:15)
[2020-05-14 06:19] LABS: Hematocrit 30.3 % (37-47); Hemoglobin 9.8 g/dL (12.0-15.0); Mean Corp Hgb Conc 32.3 g/dL (32-36); Mean Corpuscular Hgb 29.9 pg (27.0-32.0); Mean Corpuscular Volume 92.4 fL (81-99); Mean Platelet Vol. 11.2 fl (6.2-12.0); Platelet Count 158 K/mm3 (150-450); RBC Distribution Width CV 13.5 % (11.6-14.6); RBC Distribution Width SD 46.2 fl (35.1-43.9); Red Blood Count 3.28 M/mm3 (4.2-5.4); White Blood Count 7.2 K/mm3 (4.4-11.0)
[2020-05-14 06:46] LABS: Anion Gap 6 (5-15); BUN 12 mg/dL (7-18); Calcium,Total 8.1 mg/dL (8.5-10.1); Chloride 106 mmol/L (98-107); Creatinine, Serum 0.52 mg/dL (0.55-1.02); EST Glomerular Filtration Rate 122 mL/min (>60); Est Glom Filt Rate - Afr Amer 148 mL/min (>60); Estimated Creatinine Clearance 42.62 ml/min; Glucose 123 mg/dL (74-106); Magnesium 1.8 mg/dL (1.6-2.6); Potassium 3.1 mmol/L (3.5-5.1); Sodium Level 137 mmol/L (136-145)
--- NOTE | 2020-05-14 07:29 | PN_ITS ---
Patient Problems: Active and Suspected Problems FUO (fever of unknown origin) (Acute) Change in mental status (Acute) Reason for Visit: Adult failure to thrive, low-grade fever Subjective: Patient is a 74-year-old lady with history of Alzheimer's disease, recent laparoscopic repair of a perforated peptic ulcer, recent treatment for UTI who was brought to the ED with low-grade fever and confusion. Admitted to regular nursing for further management Had a discussion with patient's son the day prior. He did express the concern about patient swallowing difficulty. Consult subsequently placed to speech therapy for him. Patient has also had progressive swelling in both knees. (Has history of osteoarthritis and had previously received corticosteroid injection by [facility]). Son requested consultation with [facility] consultation placed. Objective: GENERAL: Any no distress but remains confused HEENT: Atraumatic; EYES; Anicteric, Normal Conjunctiva NECK; supple, normal thyroid, RESPIRATORY: Diminished to auscultation CARDIOVASCULAR: Regular S1 S2, GI: soft, normoactive bowel sounds, : No Renal angle tenderness; EXTREMITIES: No edema, no clubbing, MUSCULOSKELETAL: Swelling in both knees NEURO: Awake; no lateralizing signs. SKIN: No Rash PSYCH; Flat affect Vitals/I&O's: Vital Signs Temp Pulse Resp BP Pulse Ox 100.7 F H 83 18 128/51 H 95 05/14/20 04:19 05/14/20 04:19 05/14/20 04:19 05/14/20 04:19 05/14/20 04:19 Oxygen Delivery Method Room Air Weight: 65.8 kg Body Mass Index (BMI) 32.1 Finger Stick Blood Glucose 168 Intake and Output for Last 24 Hours 05/12/20 05/13/20 05/14/20 23:59 23:59 23:59 Intake Total 150 / 150 3305.00 / 3475.00 1175 / 1175 Output Total 1550 / 1550 Balance 150 / 150 1755.00 / 1925.00 1175 / 1175 Microbiology Past 72 Hours 05/12/20 08:13 Stool Enteric Bacteriology - Final 05/12/20 08:13 Stool C. difficile DNA Amplification - Final 05/12/20 08:13 Stool Stool Occult Blood (VIRY) - Final Occult Blood Positive 05/12/20 08:13 Stool Stool Lactoferrin - Final 05/13/20 00:35 Mucosa - Nasopharyngeal Respiratory Panel (PCR) - Final Laboratory Results 05/13/20 07:00: Sodium 136, Potassium 3.5, Chloride 106, Carbon Dioxide 21.0, Anion Gap 9, BUN 16, Creatinine 0.69, Estim Creat Clear Calc 42.62, Est GFR (MDRD) Af Amer 106, Est GFR (MDRD) Non-Af 88, BUN/Creatinine Ratio 23.1 H, Glucose 94, Calcium 8.4 L, Total Bilirubin 1.70 H, AST 18, ALT 12 L, Alkaline Phosphatase 60, Total Protein 6.3 L, Albumin 2.5 L, Globulin 3.8, Albumin/Globulin Ratio 0.7 L 05/14/20 05:25: WBC 7.2, RBC 3.28 L, Hgb 9.8 L, Hct 30.3 L, MCV 92.4, MCH 29.9, MCHC 32.3 D, RDW Std Deviation 46.2 H, RDW Coeff of Jonathan 13.5, Plt Count 158, MPV 11.2 05/14/20 05:25: Sodium 137, Potassium 3.1 L, Chloride 106, Carbon Dioxide 25.0, Anion Gap 6, BUN 12, Creatinine 0.52 L, Estim Creat Clear Calc 42.62, Est GFR (MDRD) Af Amer 148, Est GFR (MDRD) Non-Af 122, BUN/Creatinine Ratio 23.0 H, Glucose 123 H, Calcium 8.1 L, Magnesium 1.8 Current Medications Acetaminophen (Tylenol) 650 mg PO Q6H PRN PRN PRN Reason: Pain Score 1-10/Temp > 100.7 F Last Admin: 05/14/20 04:24 Dose: 650 mg Documented by: Acetaminophen (Tylenol) 650 mg RECTAL Q4H PRN PRN PRN Reason: Pain Score 1-10/10/FEVER Al Hydroxide/Mg Hydroxide (Mylanta Ii) 30 ml PO Q6H PRN PRN PRN Reason: Gastric Burning Albuterol Sulfate (Ventolin Aerosols) 2.5 mg INHALATION Q2H PRN PRN PRN Reason: Dyspnea, wheezing Atorvastatin Calcium (Lipitor) 10 mg PO QHS [facility] Last Admin: 05/13/20 21:53 Dose: 10 mg Documented by: Donepezil HCl (Aricept) 5 mg PO QHS [facility] Last Admin: 05/13/20 21:53 Dose: 5 mg Documented by: Enoxaparin Sodium (Lovenox) 40 mg SC DAILY [facility] Last Admin: 05/13/20 10:21 Dose: 40 mg Documented by: Escitalopram Oxalate (Lexapro) 20 mg PO DAILY [facility] Last Admin: 05/13/20 10:22 Dose: 20 mg Documented by: Guaifenesin (Robitussin) 20 ml PO Q4H PRN PRN PRN Reason: COUGH Hydralazine HCl (Apresoline Iv) 10 mg IV Q4H PRN PRN PRN Reason: SBP > 160 Sodium Chloride () 1,000 mls @ 100 mls/hr IV .Q10H [facility] Last Admin: 05/14/20 00:13 Dose: 100 mls/hr Documented by: Sodium Chloride () 250 mls @ 15 mls/hr IV .[id number] PRN PRN Reason: Saline Flush Sodium Chloride () 250 mls @ 15 mls/hr IV .[id number] PRN PRN Reason: Additional IVPB Infusion Potassium Chloride () 10 meq in 100 mls @ 100 mls/hr IV BOLUS Q1H [facility] Stop: 05/14/20 11:29 Melatonin (Melatonin) 3 mg PO QHS PRN PRN PRN Reason: INSOMNIA Memantine (Namenda) 10 mg PO BID [facility] Last Admin: 05/13/20 21:53 Dose: 10 mg Documented by: Morphine Sulfate () 2 mg IV Q3H PRN PRN PRN Reason: Pain Score 6-10/10 Nitroglycerin (Nitrostat) 0.4 mg SUBLINGUAL Q5M PRN PRN Reason: CARDIAC/CHEST PAIN Nutritional Formula (Lactose Free) (Ensure Enlive) 120 ml PO 4X/DAY [facility] Last Admin: 05/13/20 21:53 Dose: 120 ml Documented by: Ondansetron HCl (Zofran) 4 mg IV Q8H PRN PRN PRN Reason: NAUSEA/VOMITING Oxycodone HCl (Oxyir) 5 mg PO Q4H PRN PRN PRN Reason: Pain Score 4-5/10 Last Admin: 05/13/20 14:30 Dose: 5 mg Documented by: Pantoprazole Sodium (Protonix) 20 mg PO BID [facility] Last Admin: 05/13/20 21:53 Dose: 20 mg Documented by: Prochlorperazine Edisylate (Compazine Iv) 5 mg IV Q4H PRN PRN PRN Reason: Breakthrough nausea/vomiting Sodium Chloride () 10 - 40 ml IV UD PRN PRN Reason: SALINE FLUSH Throat Lozenges (Cepacol Sore Throat Lozenge) 1 lozenge MUCOUS MEM Q2H PRN PRN PRN Reason: SORE THROAT STROKE Vital Signs/Narrative: Vital Signs Temp Pulse Resp BP Pulse Ox 05/14/20 04:19 100.7 F H 83 18 128/51 H 95 05/14/20 03:49 78 19 H 92 Medical Necessity - Tobacco Use Smoking Status: Never smoker Tobacco Use: Non-smoker Assessment/Plan All Active Problems History of peptic ulcer disease (Acute) Perforated ulcer (Resolved) FUO (fever of unknown origin) (Acute) Change in mental status (Acute) Patient is a 74-year-old lady with history of Alzheimer's disease, recent laparoscopic repair of a perforated peptic ulcer, recent treatment for UTI who was brought to the ED with low-grade fever and confusion. Admitted to regular nursing for further management 1. Acute febrile illness of undetermined etiology ?COVID-19 assay came back unremarkable checks x-ray urinalysis unremarkable. 2. Hypokalemia ?Corrected per protocol 3. Recent laparoscopic repair of a perforated peptic ulcer -Was treated for H. pylori. Currently on PPI 4. Alzheimer's dementia ?With behavioral agitation 5. Recent treatment for UTI ?repeat urinalysis on admission was unremarkable 6. Dyslipidemia -Patient is on statin therapy, continued at home dose 8. Depression with anxiety ?patient is on SSRI 9. Physical deconditioning - Requested for PT OT eval and child protective services social worker to assist with discharge planning 10. Arthritis involving both knees with significant swelling ?Consult placed to orthopedic surgery per family request 11. DVT prophylaxis - On enoxaparin Active Medications Acetaminophen (Tylenol) 650 mg PO Q6H PRN PRN PRN Reason: Pain Score 1-10/Temp > 100.7 F Last Admin: 05/14/20 04:24 Dose: 650 mg Documented by: Acetaminophen (Tylenol) 650 mg RECTAL Q4H PRN PRN PRN Reason: Pain Score 1-10/10/FEVER Al Hydroxide/Mg Hydroxide (Mylanta Ii) 30 ml PO Q6H PRN PRN PRN Reason: Gastric Burning Albuterol Sulfate (Ventolin Aerosols) 2.5 mg INHALATION Q2H PRN PRN PRN Reason: Dyspnea, wheezing Atorvastatin Calcium (Lipitor) 10 mg PO QHS [facility] Last Admin: 05/13/20 21:53 Dose: 10 mg Documented by: Donepezil HCl (Aricept) 5 mg PO QHS [facility] Last Admin: 05/13/20 21:53 Dose: 5 mg Documented by: Enoxaparin Sodium (Lovenox) 40 mg SC DAILY [facility] Last Admin: 05/13/20 10:21 Dose: 40 mg Documented by: Escitalopram Oxalate (Lexapro) 20 mg PO DAILY [facility] Last Admin: 05/13/20 10:22 Dose: 20 mg Documented by: Guaifenesin (Robitussin) 20 ml PO Q4H PRN PRN PRN Reason: COUGH Hydralazine HCl (Apresoline Iv) 10 mg IV Q4H PRN PRN PRN Reason: SBP > 160 Sodium Chloride () 1,000 mls @ 100 mls/hr IV .Q10H [facility] Last Admin: 05/14/20 08:35 Dose: 50 mls/hr Documented by: Sodium Chloride () 250 mls @ 15 mls/hr IV .[id number] PRN PRN Reason: Saline Flush Sodium Chloride () 250 mls @ 15 mls/hr IV .[id number] PRN PRN Reason: Additional IVPB Infusion Potassium Chloride () 10 meq in 100 mls @ 100 mls/hr IV BOLUS Q1H [facility] Stop: 05/14/20 11:29 Last Admin: 05/14/20 08:26 Dose: 100 mls/hr Documented by: Melatonin (Melatonin) 3 mg PO QHS PRN PRN PRN Reason: INSOMNIA Memantine (Namenda) 10 mg PO BID [facility] Last Admin: 05/13/20 21:53 Dose: 10 mg Documented by: Morphine Sulfate () 2 mg IV Q3H PRN PRN PRN Reason: Pain Score 6-10/10 Nitroglycerin (Nitrostat) 0.4 mg SUBLINGUAL Q5M PRN PRN Reason: CARDIAC/CHEST PAIN Nutritional Formula (Lactose Free) (Ensure Enlive) 120 ml PO 4X/DAY [facility] Last Admin: 05/14/20 08:36 Dose: 120 ml Documented by: Ondansetron HCl (Zofran) 4 mg IV Q8H PRN PRN PRN Reason: NAUSEA/VOMITING Oxycodone HCl (Oxyir) 5 mg PO Q4H PRN PRN PRN Reason: Pain Score 4-5/10 Last Admin: 05/13/20 14:30 Dose: 5 mg Documented by: Pantoprazole Sodium (Protonix) 20 mg PO BID [facility] Last Admin: 05/13/20 21:53 Dose: 20 mg Documented by: Prochlorperazine Edisylate (Compazine Iv) 5 mg IV Q4H PRN PRN PRN Reason: Breakthrough nausea/vomiting Sodium Chloride () 10 - 40 ml IV UD PRN PRN Reason: SALINE FLUSH Throat Lozenges (Cepacol Sore Throat Lozenge) 1 lozenge MUCOUS MEM Q2H PRN PRN PRN Reason: SORE THROAT Inpatient E&M: [id number] [facility] L2
[2020-05-14] MEDS: Potassium Chloride 10mEq/100mL 10 MEQ/100 ML IV.SOLN. 100 MEQ IV BOLUS ×4 (08:26→11:49)
[2020-05-14] MEDS: 0.9% Normal Saline 1,000 ML 50 ML IV (08:35)
--- NOTE | 2020-05-14 08:55 | NURSING ---
son called and wanted update attempt to call him back unsuccessful, son kori did not answer phone and mailbox full could not leave message
[2020-05-14] MEDS: Memantine Hydrochloride 10 MG Tablet PO ×2 (09:42→20:16)
[2020-05-14] MEDS: Escitalopram Oxalate 20 MG Tablet PO (09:42)
[2020-05-14] MEDS: Enoxaparin 40 MG/0.4 ML Syringe SC (09:42)
[2020-05-14] MEDS: Pantoprazole Sodium 20 MG Tablet PO ×2 (09:43→20:16)
--- NOTE | 2020-05-14 09:52 | NURSING ---
attempt to call son kori 2nd time unsuccessful-rang twice,and voicemail is full
--- NOTE | 2020-05-14 14:29 | CON.PCM_ITS ---
Reason for Consult Date of Consultation: 05/14/20 Reason for Consultation: fever of unknkown origin, bilateral knee effusions. requested by dr valenzuela History of Present Illness: The patient is a 74 year old F significant dementia presented to the hospital 2 days ago with a fever of unknown origin. Medicine has been managing her work- up. During this time family is also noted that she is had progressive knee effusions. Prior to the knee effusion she was doing well with treatment for osteoarthritis of bilateral knees. She previously had corticosteroid injections. Family is requested a consultation for the bilateral knee effusions. She has not had associated erythema of the knee. She is a poor historian. However based on reports from the family patient was doing well prior to the effusions. She is also had recent EGD for peptic ulcers and has been being treated medically. Due to concerns of anesthetic they have neglected to return for EGD to follow-up. Patient has difficulty with even transferring to the bathroom due to her knee pain. Mobility has been significantly affected. Past Medical History Past Medical History (Chronic Problems): Chronic Problems History of hypercholesterolemia (Chronic) History of hypertension (Chronic) History of dementia (Chronic) Anxiety and depression (Chronic) Allergies Penicillins Allergy (Intermediate, Verified 04/15/20 03:56) Hives clindamycin Adverse Reaction (Verified 04/15/20 03:56) Vomiting Home Medications: Ambulatory Orders Medication Instructions Recorded Hydrochlorothiazide [Hctz] 25 mg PO DAILY 07/28/13 Simvastatin [Zocor] 20 mg PO QHS 07/28/13 Donepezil HCl [Aricept] 5 mg PO QHS 05/12/20 Escitalopram Oxalate [Lexapro] 20 mg PO DAILY 05/12/20 Memantine HCl [Namenda Xr] 28 mg PO DAILY 05/12/20 Surgical History: - - Laparoscopic repair of perforated ulcer. 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 Smoking Status: Never smoker Tobacco Use: Non-smoker Alcohol: None Drugs: None - *Family History Maternal History Items: Heart Disease Paternal History Items: Heart Disease Review of Systems Constitutional: Reports: Anorexia, Fever HEENT: Denies: Head Aches, Sinus Congestion, Sinus Drainage Cardiovascular: Denies: Chest Pain, Palpitations Respiratory: Denies: Cough, Shortness of breath at rest, Sputum production Gastrointestinal: Reports: - - Previous GI bleed Genitourinary: Denies: Dysuria Musculoskeletal: Reports: Joint Pain, Joint swelling, Joint Tenderness Skin: Denies: Rash, Wounds Neurological: Reports: Confusion, - - Dementia Psychiatric: Denies: Homicidal Ideations, Suicidal Ideations Patient Problems: Active and Suspected Problems FUO (fever of unknown origin) (Acute) Change in mental status (Acute) Objective: 2 views of both knees were reviewed showing varus knee arthritis with medial joint space narrowing subchondral sclerosis and marginal osteophyte formation. - Physical Exam Vitals/I&O's: Vital Signs Temp Pulse Resp BP Pulse Ox 99.1 F 70 18 124/61 H 96 05/14/20 08:59 05/14/20 08:59 05/14/20 08:59 05/14/20 08:59 05/14/20 08:59 Oxygen Delivery Method Room Air Weight: 145 lb 1.027 oz Body Mass Index (BMI) 32.1 Finger Stick Blood Glucose 168 Intake and Output for Last 24 Hours 05/12/20 05/13/20 05/14/20 23:59 23:59 23:59 Intake Total 150 / 150 3305.00 / 3475.00 2353.34 / 2353.34 Output Total 1550 / 1550 Balance 150 / 150 1755.00 / 1925.00 2353.34 / 2353.34 General: Alert, Cooperative, - - Used HEENT: Atraumatic Oral: Moist Mucosa Neck: No JVD Lungs: - - Nonlabored breathing Cardiovascular: - - regular pulse rate Abdomen: Non-Distended Extremities: - - Right knee shows warmth to palpation. No erythema. Large effusion. Tolerates short arc range of motion without significant discomfort however has difficulty flexing past 90 degrees. Difficulty with bearing weight on transfers. Neurovascular intact distally Right knee shows warmth to palpation. No erythema. Large effusion. Tolerates short arc range of motion without significant discomfort however has difficulty flexing past 90 degrees. Difficulty with bearing weight on transfers. Neurovascular intact distally Microbiology Past 72 Hours 05/12/20 22:15 Urine Catheter - Catheter Urine Culture - Preliminary Culture exhibits no growth. 05/12/20 08:13 Stool Enteric Bacteriology - Final 05/12/20 08:13 Stool C. difficile DNA Amplification - Final 05/12/20 08:13 Stool Stool Occult Blood (VIRY) - Final Occult Blood Positive 05/12/20 08:13 Stool Stool Lactoferrin - Final 05/13/20 00:35 Mucosa - Nasopharyngeal Respiratory Panel (PCR) - Final Laboratory Results 05/14/20 05:25: WBC 7.2, RBC 3.28 L, Hgb 9.8 L, Hct 30.3 L, MCV 92.4, MCH 29.9, MCHC 32.3 D, RDW Std Deviation 46.2 H, RDW Coeff of Jonathan 13.5, Plt Count 158, MPV 11.2 05/14/20 05:25: Sodium 137, Potassium 3.1 L, Chloride 106, Carbon Dioxide 25.0, Anion Gap 6, BUN 12, Creatinine 0.52 L, Estim Creat Clear Calc 42.62, Est GFR (MDRD) Af Amer 148, Est GFR (MDRD) Non-Af 122, BUN/Creatinine Ratio 23.0 H, Glucose 123 H, Calcium 8.1 L, Magnesium 1.8 Current Medications Acetaminophen (Tylenol) 650 mg PO Q6H PRN PRN PRN Reason: Pain Score 1-10/Temp > 100.7 F Last Admin: 05/14/20 04:24 Dose: 650 mg Documented by: Acetaminophen (Tylenol) 650 mg RECTAL Q4H PRN PRN PRN Reason: Pain Score 1-10/10/FEVER Al Hydroxide/Mg Hydroxide (Mylanta Ii) 30 ml PO Q6H PRN PRN PRN Reason: Gastric Burning Albuterol Sulfate (Ventolin Aerosols) 2.5 mg INHALATION Q2H PRN PRN PRN Reason: Dyspnea, wheezing Atorvastatin Calcium (Lipitor) 10 mg PO QHS [facility] Last Admin: 05/13/20 21:53 Dose: 10 mg Documented by: Donepezil HCl (Aricept) 5 mg PO QHS [facility] Last Admin: 05/13/20 21:53 Dose: 5 mg Documented by: Enoxaparin Sodium (Lovenox) 40 mg SC DAILY [facility] Last Admin: 05/14/20 09:42 Dose: 40 mg Documented by: Escitalopram Oxalate (Lexapro) 20 mg PO DAILY [facility] Last Admin: 05/14/20 09:42 Dose: 20 mg Documented by: Guaifenesin (Robitussin) 20 ml PO Q4H PRN PRN PRN Reason: COUGH Hydralazine HCl (Apresoline Iv) 10 mg IV Q4H PRN PRN PRN Reason: SBP > 160 Sodium Chloride () 1,000 mls @ 100 mls/hr IV .Q10H [facility] Last Admin: 05/14/20 08:35 Dose: 50 mls/hr Documented by: Sodium Chloride () 250 mls @ 15 mls/hr IV .[id number] PRN PRN Reason: Saline Flush Sodium Chloride () 250 mls @ 15 mls/hr IV .[id number] PRN PRN Reason: Additional IVPB Infusion Melatonin (Melatonin) 3 mg PO QHS PRN PRN PRN Reason: INSOMNIA Memantine (Namenda) 10 mg PO BID [facility] Last Admin: 05/14/20 09:42 Dose: 10 mg Documented by: Morphine Sulfate () 2 mg IV Q3H PRN PRN PRN Reason: Pain Score 6-10/10 Nitroglycerin (Nitrostat) 0.4 mg SUBLINGUAL Q5M PRN PRN Reason: CARDIAC/CHEST PAIN Nutritional Formula (Lactose Free) (Ensure Enlive) 120 ml PO 4X/DAY [facility] Last Admin: 05/14/20 11:49 Dose: 120 ml Documented by: Ondansetron HCl (Zofran) 4 mg IV Q8H PRN PRN PRN Reason: NAUSEA/VOMITING Oxycodone HCl (Oxyir) 5 mg PO Q4H PRN PRN PRN Reason: Pain Score 4-5/10 Last Admin: 05/13/20 14:30 Dose: 5 mg Documented by: Pantoprazole Sodium (Protonix) 20 mg PO BID [facility] Last Admin: 05/14/20 09:43 Dose: 20 mg Documented by: Prochlorperazine Edisylate (Compazine Iv) 5 mg IV Q4H PRN PRN PRN Reason: Breakthrough nausea/vomiting Sodium Chloride () 10 - 40 ml IV UD PRN PRN Reason: SALINE FLUSH Throat Lozenges (Cepacol Sore Throat Lozenge) 1 lozenge MUCOUS MEM Q2H PRN PRN PRN Reason: SORE THROAT Assessment/Plan All Active Problems History of peptic ulcer disease (Acute) Perforated ulcer (Resolved) FUO (fever of unknown origin) (Acute) Change in mental status (Acute) Bilateral knee effusion, history of bilateral osteoarthritis. I did discuss the natural history of the disease process with the patient. Patient is dementia does create a barrier to patient education. I did recommend we aspirate both knees due to the fever of unknown origin as well as the large effusions in order to rule out an septic joint. My suspicion is low. However, based on no other source of fever at this time felt to be appropriate. Patient was agreeable to the treatment plan. Specimens were sent for culture, Gram stain as well as cell count and crystals. Will obtain stat results and form a treatment plan accordingly. My suspicion based on the aspiration color bilaterally is crystalline or inflammatory arthropathy. Aspiration right knee: Patient's lateral suprapatellar portal was palpated. It was marked on the skin. Skin was cleaned with alcohol. 18-gauge needle was used to introduce into the joint. 10 cc of fluid were obtained and used for specimen. Additional 50 cc of fluid were obtained from the knee. 18-gauge needle was removed pressure was held and Band-Aid was placed. Aspiration left knee: Patient's lateral suprapatellar portal was palpated. It was marked on the skin. Skin was cleaned with alcohol. 18-gauge needle was used to introduce into the joint. 10 cc of fluid were obtained and used for specimen. Additional 40 cc of fluid were obtained from the knee. 18-gauge needle was removed pressure was held and Band-Aid was placed. [facility] Office:
[2020-05-14 15:06] LABS: Pathologist Comment May follow
[2020-05-14 16:34] LABS: Appearance /Synovial Fluid Cloudy (CLEAR)
[2020-05-14 16:35] LABS: AUTO B FLUID DILUENT BKGD CT WBC <0.1 RBC <0.01 (W<.1,R<.01); CRYSTALS, BODY FLUID See PATH REV; Source / Synovial Fluid RIGHT KNEE; Source- Body Fluid SYNOVIAL
[2020-05-14 16:37] LABS: RBC /Synovial Fluid 0.004 10^6/uL (0)
[2020-05-14 16:38] LABS: Synovial Fld Mononuclear WBC # 4.952 10^3/ul; Synovial Fld Polynuclear WBC # 19.774 10^3/uL
[2020-05-14 16:47] LABS: Color / Synovial Fluid YELLOW (Pale Yellow); Lymph 7 %; Monocyte /Synovial Fluid 14 %; Neutrophil 79 % (0-25)
[2020-05-14 16:52] LABS: Body Fluid QC Type(s) BF1Q, BF2Q
[2020-05-14 17:31] LABS: Pathologist Comment May follow
[2020-05-14 17:50] LABS: Synovial Fld Mononuclear WBC % 19.4 %; Synovial Fld Polynuclear WBC % 80.6 %
[2020-05-14] MEDS: oxyCODONE 5 MG Tablet PO (18:17)
[2020-05-14 18:53] LABS: Lymph 12 %; Monocyte /Synovial Fluid 4 %; Neutrophil 84 % (0-25)
[2020-05-14 18:55] LABS: RBC /Synovial Fluid 0.003 10^6/uL (0)
[2020-05-14 18:56] LABS: AUTO B FLUID DILUENT BKGD CT WBC <0.1 RBC <0.01 (W<.1,R<.01); Appearance /Synovial Fluid Cloudy (CLEAR); Color / Synovial Fluid Yellow (Pale Yellow); Source / Synovial Fluid LEFT KNEE; Source- Body Fluid SYNOVIAL; Synovial Fld Mononuclear WBC # 6.063 10^3/ul
[2020-05-14 18:57] LABS: Body Fluid QC Type(s) BF1Q,BF2Q
[2020-05-14] MEDS: Vancomycin IV 1,000 MG/200 ML BAG 200 MG IV (20:01)
[2020-05-14] MEDS: Donepezil HCl 5 MG Tablet PO (20:16)
[2020-05-14] MEDS: MELATONIN 3 MG TABLET PO (20:16)
[2020-05-14] MEDS: Atorvastatin Calcium 10 MG Tablet PO (20:16)
--- NOTE | 2020-05-14 20:32 | PCM.RX.CS ---
Consult Pharmacy has been consulted to manage selected antiobiotic: Vancomycin Type of Consult: New start Labs: Sodium 137 mmol/L (136-145) 05/14/20 05:25 Potassium 3.1 mmol/L (3.5-5.1) L 05/14/20 05:25 Chloride 106 mmol/L (98-107) 05/14/20 05:25 Carbon Dioxide 25.0 mmol/L (21.0-32.0) 05/14/20 05:25 Anion Gap 6 (5-15) 05/14/20 05:25 BUN 12 mg/dL (7-18) 05/14/20 05:25 Creatinine 0.52 mg/dL (0.55-1.02) L 05/14/20 05:25 Est GFR (MDRD) Af Amer 148 mL/min (>60) 05/14/20 05:25 Est GFR (MDRD) Non-Af 122 mL/min (>60) 05/14/20 05:25 BUN/Creatinine Ratio 23.0 RATIO (10-20) H 05/14/20 05:25 Glucose 123 mg/dL (74-106) H 05/14/20 05:25 Microbiology: Microbiology 05/14/20 14:25 Aspirate - Knee Gram Stain - Preliminary 05/14/20 14:25 Fluid - Synovial (joint) Gram Stain - Preliminary 05/12/20 22:15 Urine Catheter - Catheter Urine Culture - Preliminary Culture exhibits no growth. 05/12/20 08:13 Stool Enteric Bacteriology - Final 05/12/20 08:13 Stool C. difficile DNA Amplification - Final 05/12/20 08:13 Stool Stool Occult Blood (VIRY) - Final Occult Blood Positive 05/12/20 08:13 Stool Stool Lactoferrin - Final 05/13/20 00:35 Mucosa - Nasopharyngeal Respiratory Panel (PCR) - Final Goal Trough: 15-20 mcg/mL Pharmacy Plan for Drug Dosing: Pharmacy Service will continue to monitor and adjust dosing as required. Medications Vancomycin HCl 1,250 mg/ (Sodium Chloride) 275 mls @ 167 mls/hr IV Q12H [facility] Vancomycin HCl (Vancomycin) 1,000 mg in 200 mls @ 200 mls/hr IV X1 ONE Stop: 05/14/20 20:59 Last Admin: 05/14/20 20:01 Dose: 200 mls/hr Documented by: Follow-Up Labs: Trough Vancomycin Labs to be done on [date and time ordered]: 05/16 @ [id number]
[2020-05-15] VITALS (8 sets, daily range): BP systolic 115–143; BP diastolic 51–80; PULSE 70–77; RESP 16–18; TEMP 36.5–37.6; O2SAT 95–99
[2020-05-15 06:23] LABS: Hemoglobin 9.5 g/dL (12.0-15.0); Mean Corp Hgb Conc 31.7 g/dL (32-36); Mean Corpuscular Hgb 29.5 pg (27.0-32.0); Mean Corpuscular Volume 93.2 fL (81-99); Mean Platelet Vol. 10.5 fl (6.2-12.0); Platelet Count 156 K/mm3 (150-450); RBC Distribution Width SD 47.7 fl (35.1-43.9); Red Blood Count 3.22 M/mm3 (4.2-5.4); White Blood Count 6.7 K/mm3 (4.4-11.0)
[2020-05-15 06:45] LABS: Anion Gap 6 (5-15); BUN 10 mg/dL (7-18); BUN/Creat Ratio 19.4 RATIO (10-20); Calcium,Total 7.7 mg/dL (8.5-10.1); Chloride 108 mmol/L (98-107); Creatinine, Serum 0.52 mg/dL (0.55-1.02); EST Glomerular Filtration Rate 124 mL/min (>60); Est Glom Filt Rate - Afr Amer 150 mL/min (>60); Estimated Creatinine Clearance 42.62 ml/min; Glucose 109 mg/dL (74-106); Potassium 3.4 mmol/L (3.5-5.1); Sodium Level 139 mmol/L (136-145)
[2020-05-15] MEDS: 0.9% Saline Lock 10 ML Syringe IV (08:16)
[2020-05-15] MEDS: 0.9% Normal Saline 1,000 ML 100 ML IV ×2 (08:17→20:00)
[2020-05-15] MEDS: Escitalopram Oxalate 20 MG Tablet PO (08:20)
[2020-05-15] MEDS: Pantoprazole Sodium 20 MG Tablet PO ×2 (08:20→21:45)
[2020-05-15] MEDS: Acetaminophen 325 MG Tablet 650 MG PO ×2 (08:20→18:39)
[2020-05-15] MEDS: Memantine Hydrochloride 10 MG Tablet PO ×2 (08:20→21:45)
[2020-05-15] MEDS: Enoxaparin 40 MG/0.4 ML Syringe SC (08:24)
--- NOTE | 2020-05-15 10:54 | PCM.PN.HOSP ---
Patient Problems: Active and Suspected Problems FUO (fever of unknown origin) (Acute) Change in mental status (Acute) Subjective: No issues overnight, doing well. Remains afebrile. States that her knees feel fine though she does have significant dementia Vitals/I&O's: Vital Signs Temp Pulse Resp BP Pulse Ox 97.7 F L 70 16 143/53 H 95 05/15/20 02:45 05/15/20 02:45 05/15/20 02:54 05/15/20 02:45 05/15/20 08:03 Oxygen Delivery Method Room Air Weight: 145 lb 1.027 oz Body Mass Index (BMI) 32.1 Finger Stick Blood Glucose 168 Intake and Output for Last 24 Hours 05/13/20 05/14/20 05/15/20 23:59 23:59 23:59 Intake Total 3305.00 / 3475.00 3375.01 / 3535.01 690.00 / 690.00 Output Total 1550 / 1550 Balance 1755.00 / 1925.00 3375.01 / 3535.01 690.00 / 690.00 General: Alert, Cooperative, No apparent distress, - - She knows who she is and that she is in [place] she is not aware. HEENT: Atraumatic, PERRLA, EOMI, Normocephalic Oral: Moist Mucosa Neck: Supple, No JVD Lungs: Clear to auscultation, Normal air movement, No rhonchi, No wheeze, No rales, Diminished Cardiovascular: Regular rate, Regular Rhythm, Normal S1, Normal S2, No murmurs Abdomen: Soft, Non Tender, Non-Distended, No Hepato-splenomegaly Extremities: No edema, Capillary Refill Less than 3 Seconds Skin: No rashes, No breakdown Musculoskeletal: - - Bilateral knees are swollen however there is no erythema surrounding this Neurological: Neuro grossly intact, Sensory exam intact to light touch and pain Psych/Mental Status: Normal Affect, Appropriate Microbiology Past 72 Hours 05/14/20 14:25 Fluid - Synovial (joint) Gram Stain - Preliminary 05/14/20 14:25 Fluid - Synovial (joint) Body Fluid Culture - Preliminary No growth-Final to follow 05/12/20 22:15 Urine Catheter - Catheter Urine Culture - Final Culture exhibits no growth. 05/12/20 21:55 Blood Culture (Wb) - Left Forearm Blood Culture - Preliminary No growth in 48 hours. 05/12/20 21:50 Blood Culture (Wb) - Anticubital Right Blood Culture - Preliminary No growth in 48 hours. 05/14/20 14:25 Aspirate - Knee Gram Stain - Preliminary 05/12/20 08:13 Stool Enteric Bacteriology - Final 05/12/20 08:13 Stool C. difficile DNA Amplification - Final 05/12/20 08:13 Stool Stool Occult Blood (VIRY) - Final Occult Blood Positive 05/12/20 08:13 Stool Stool Lactoferrin - Final 05/13/20 00:35 Mucosa - Nasopharyngeal Respiratory Panel (PCR) - Final Laboratory Results 05/14/20 14:25: Fluid Source Cancelled, Fluid Color Cancelled, Fluid Appearance Cancelled, Fluid WBC Cancelled, Fluid RBC Cancelled, Fluid Tot Cell Count Cancelled, Fld Polynuclear WBCs # Cancelled, Fld Polynuclear WBCs % Cancelled, Fluid Mononuclear WBCs Cancelled, Fld Mononuclear WBCs % Cancelled, Fluid Neutrophils Cancelled, Fluid Lymphocytes Cancelled, Fluid Monocytes Cancelled, Fluid Plasma Cells Cancelled, Fluid Macrophages Cancelled, Fld Mesothelial Cells Cancelled, Fluid Other Cells Cancelled, Fluid Crystals See PATH REV, Fluid Crystal Source SYNOVIAL, Fl Crystal Path Review Will follow, Fl Pathologist Comment Cancelled, Fluid Comment 2 Cancelled, Synovial Source RIGHT KNEE, Synovial Color YELLOW, Synovial Appearance Cloudy, Synovial WBC 21.5970 H, Synovial RBC 0.004 H, Synovial Tot Cell Ct 21.8460 H, Synov Polynuclear WBCs 19.774, Synov Mononuclear WBCs 4.952, Synovial Neutrophils 79 H, Synovial Lymphocytes 7, Synovial Monocytes 14, Synovial Polynuclear % 80.0, Synovial Mononuclear % 20.0, Synovial Path Comment May follow 05/14/20 14:25: Fluid Crystals SEE PATH REV, Fluid Crystal Source SYNOVIAL, Fl Crystal Path Review Will follow, Synovial Source LEFT KNEE, Synovial Color Yellow, Synovial Appearance Cloudy, Synovial WBC 30.9760 H, Synovial RBC 0.003 H, Synovial Tot Cell Ct 31.1760 H, Synov Polynuclear WBCs 25.213, Synov Mononuclear WBCs 6.063, Synovial Neutrophils 84 H, Synovial Lymphocytes 12, Synovial Monocytes 4, Synovial Polynuclear % 80.6, Synovial Mononuclear % 19.4, Synovial Path Comment May follow 05/15/20 06:17: WBC 6.7, RBC 3.22 L, Hgb 9.5 L, Hct 30.0 L, MCV 93.2, MCH 29.5, MCHC 31.7 L, RDW Std Deviation 47.7 H, RDW Coeff of Jonathan 14.0, Plt Count 156, MPV 10.5 05/15/20 06:17: Sodium 139, Potassium 3.4 L, Chloride 108 H, Carbon Dioxide 25.0, Anion Gap 6, BUN 10, Creatinine 0.52 L, Estim Creat Clear Calc 42.62, Est GFR (MDRD) Af Amer 150, Est GFR (MDRD) Non-Af 124, BUN/Creatinine Ratio 19.4, Glucose 109 H, Calcium 7.7 L Current Medications Acetaminophen (Tylenol) 650 mg PO Q6H PRN PRN PRN Reason: Pain Score 1-10/Temp > 100.7 F Last Admin: 05/15/20 08:20 Dose: 650 mg Documented by: Acetaminophen (Tylenol) 650 mg RECTAL Q4H PRN PRN PRN Reason: Pain Score 1-10/10/FEVER Al Hydroxide/Mg Hydroxide (Mylanta Ii) 30 ml PO Q6H PRN PRN PRN Reason: Gastric Burning Albuterol Sulfate (Ventolin Aerosols) 2.5 mg INHALATION Q2H PRN PRN PRN Reason: Dyspnea, wheezing Atorvastatin Calcium (Lipitor) 10 mg PO QHS [facility] Last Admin: 05/14/20 20:16 Dose: 10 mg Documented by: Donepezil HCl (Aricept) 5 mg PO QHS [facility] Last Admin: 05/14/20 20:16 Dose: 5 mg Documented by: Enoxaparin Sodium (Lovenox) 40 mg SC DAILY [facility] Last Admin: 05/15/20 08:24 Dose: 40 mg Documented by: Escitalopram Oxalate (Lexapro) 20 mg PO DAILY [facility] Last Admin: 05/15/20 08:20 Dose: 20 mg Documented by: Guaifenesin (Robitussin) 20 ml PO Q4H PRN PRN PRN Reason: COUGH Hydralazine HCl (Apresoline Iv) 10 mg IV Q4H PRN PRN PRN Reason: SBP > 160 Sodium Chloride () 1,000 mls @ 100 mls/hr IV .Q10H [facility] Last Infusion: 05/15/20 08:18 Dose: 0 mls/hr Documented by: Sodium Chloride () 250 mls @ 15 mls/hr IV .[id number] PRN PRN Reason: Saline Flush Sodium Chloride () 250 mls @ 15 mls/hr IV .[id number] PRN PRN Reason: Additional IVPB Infusion Meropenem 1 gm/ Sodium (Chloride) 120 mls @ 33 mls/hr IV Q8 [facility] Last Admin: 05/15/20 05:14 Dose: 33 mls/hr Documented by: Vancomycin IV Pharmacy to Dose (1 ea/ Sodium Chloride) 500 mls @ 250 mls/hr IV X1 PRN; Protocol PRN Reason: Rx to Dose Vancomycin HCl 1,250 mg/ (Sodium Chloride) 275 mls @ 167 mls/hr IV Q12H [facility] Last Admin: 05/15/20 08:08 Dose: 167 mls/hr Documented by: Melatonin (Melatonin) 3 mg PO QHS PRN PRN PRN Reason: INSOMNIA Last Admin: 05/14/20 20:16 Dose: 3 mg Documented by: Memantine (Namenda) 10 mg PO BID [facility] Last Admin: 05/15/20 08:20 Dose: 10 mg Documented by: Nitroglycerin (Nitrostat) 0.4 mg SUBLINGUAL Q5M PRN PRN Reason: CARDIAC/CHEST PAIN Nutritional Formula (Lactose Free) (Ensure Enlive) 120 ml PO 4X/DAY [facility] Last Admin: 05/15/20 08:21 Dose: 120 ml Documented by: Ondansetron HCl (Zofran) 4 mg IV Q8H PRN PRN PRN Reason: NAUSEA/VOMITING Oxycodone HCl (Oxyir) 5 mg PO Q4H PRN PRN PRN Reason: Pain Score 4-5/10 Last Admin: 05/14/20 18:17 Dose: 5 mg Documented by: Pantoprazole Sodium (Protonix) 20 mg PO BID [facility] Last Admin: 05/15/20 08:20 Dose: 20 mg Documented by: Prochlorperazine Edisylate (Compazine Iv) 5 mg IV Q4H PRN PRN PRN Reason: Breakthrough nausea/vomiting Sodium Chloride () 10 - 40 ml IV UD PRN PRN Reason: SALINE FLUSH Last Admin: 05/15/20 08:16 Dose: 10 ml Documented by: Throat Lozenges (Cepacol Sore Throat Lozenge) 1 lozenge MUCOUS MEM Q2H PRN PRN PRN Reason: SORE THROAT STROKE Vital Signs/Narrative: Vital Signs Pulse Ox 05/15/20 08:03 95 Medical Necessity - Tobacco Use Smoking Status: Never smoker Tobacco Use: Non-smoker Assessment/Plan All Active Problems History of peptic ulcer disease (Acute) Perforated ulcer (Resolved) FUO (fever of unknown origin) (Acute) Change in mental status (Acute) 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 Cultures are still pending -Continue with meropenem and vancomycin, however she may need to be on an anti-inflammatory agent. Will leave this up to orthopedic surgery -Pathology of the synovial fluid is still pending 2. GERD status post recent laparoscopic repair of a perforated peptic ulcer -Continue with PPI -Stable 3. HLD/HTN -Blood pressures are stable, will hold her hydrochlorothiazide as this can lead to hyperuricemia, pending pathology review of the synovial fluid -Continue with statin 4. Dementia/depression -Stable -Continue with Aricept, Namenda, Lexapro DVT: Lovenox Inpatient E&M: 04198 Subs Hosp L2
--- NOTE | 2020-05-15 11:50 | CASEMGMT ---
RN CM Face to Face with patient for initial transition planning/care coordination assessment. RN CM introduced self and role at [facility]. Patient lying in bed, alert and confused, patient has dementia, son at bedside. Patient and son willing to participate in assessment and is able to answer all questions appropriately. Care providers, pharmacy, and demographics verified. Sandeep Bains states that if patient is requiring assistance, patient may need SNF at discharge. RN CM provided list of SNF and HHC in network with patient's insurance. Son states he has no further needs or concerns at this time. CM to follow for discharge planning needs that may arise. PCP: Geovanna Specialists: CHUN at [facility] Preferred Pharmacy: [facility] Insurance: MMO [facility] Prescription Benefit: yes Living Will/HPOA: yes, Ta Frazier LNOK: , son, daughter Living Arrangements: Patient lives with in a 1 story home with 4 steps to enter the home. Patient was independent at home. Transportation: DME/HHC: Patient has Cpap at home. May need walker at discharge. Therapy recommendations pending. Disposition Plan: TBD by course of treatment and therapy eval. Brooklyn CORTEZ, RN, CM
[2020-05-15 14:23] LABS: Pathologist Review Reviewed
--- NOTE | 2020-05-15 16:00 | CASEMGMT ---
JUANA CM in to discuss discharge plans with son, Herson. Patient walked 250ft contact guard assist of 1 with therapy. JUANA BO discussed therapy progress with son. Son would like [facility] at discharge. Patient will need walker at discharge. List of DME reviewed with son and prefers [facility]. CM will follow-up in the am to make HHC and DME referrals.
[2020-05-15] MEDS: MELATONIN 3 MG TABLET PO (21:45)
[2020-05-15] MEDS: Donepezil HCl 5 MG Tablet PO (21:45)
[2020-05-15] MEDS: Atorvastatin Calcium 10 MG Tablet PO (21:46)
[2020-05-16 02:45] VITALS: BP 141/65; PULSE 81; RESP 18; TEMP 37.1; O2SAT 94
[2020-05-16] MEDS: Acetaminophen 325 MG Tablet 650 MG PO ×2 (06:05→12:01)
[2020-05-16 06:57] LABS: Hematocrit 27.2 % (37-47); Hemoglobin 8.8 g/dL (12.0-15.0); Mean Corp Hgb Conc 32.4 g/dL (32-36); Mean Corpuscular Hgb 29.8 pg (27.0-32.0); Mean Corpuscular Volume 92.2 fL (81-99); Mean Platelet Vol. 10.1 fl (6.2-12.0); Platelet Count 171 K/mm3 (150-450); RBC Distribution Width CV 14.3 % (11.6-14.6); RBC Distribution Width SD 48.2 fl (35.1-43.9); Red Blood Count 2.95 M/mm3 (4.2-5.4); White Blood Count 6.9 K/mm3 (4.4-11.0)
[2020-05-16 07:28] LABS: Vancomycin, Trough Level 17.2 ug/mL (5.0-15.0)
[2020-05-16 07:29] LABS: Anion Gap 4 (5-15); BUN 10 mg/dL (7-18); BUN/Creat Ratio 18.8 RATIO (10-20); Calcium,Total 7.6 mg/dL (8.5-10.1); Chloride 112 mmol/L (98-107); Creatinine, Serum 0.53 mg/dL (0.55-1.02); EST Glomerular Filtration Rate 120 mL/min (>60); Est Glom Filt Rate - Afr Amer 145 mL/min (>60); Estimated Creatinine Clearance 42.62 ml/min; Glucose 116 mg/dL (74-106); Potassium 3.2 mmol/L (3.5-5.1); Sodium Level 140 mmol/L (136-145)
--- NOTE | 2020-05-16 08:28 | PCM.RX.CS ---
Consult Pharmacy has been consulted to manage selected antiobiotic: Vancomycin Type of Consult: Follow-up Labs: Sodium 140 mmol/L (136-145) 05/16/20 06:50 Potassium 3.2 mmol/L (3.5-5.1) L 05/16/20 06:50 Chloride 112 mmol/L (98-107) H 05/16/20 06:50 Carbon Dioxide 24.0 mmol/L (21.0-32.0) 05/16/20 06:50 Anion Gap 4 (5-15) L 05/16/20 06:50 BUN 10 mg/dL (7-18) 05/16/20 06:50 Creatinine 0.53 mg/dL (0.55-1.02) L 05/16/20 06:50 Est GFR (MDRD) Af Amer 145 mL/min (>60) 05/16/20 06:50 Est GFR (MDRD) Non-Af 120 mL/min (>60) 05/16/20 06:50 BUN/Creatinine Ratio 18.8 RATIO (10-20) 05/16/20 06:50 Glucose 116 mg/dL (74-106) H 05/16/20 06:50 Vancomycin Trough 17.2 ug/mL (5.0-15.0) H 05/16/20 06:50 Microbiology: Microbiology 05/14/20 14:25 Fluid - Synovial (joint) Gram Stain - Final 05/14/20 14:25 Fluid - Synovial (joint) Body Fluid Culture - Preliminary No growth-Final to follow 05/12/20 22:15 Urine Catheter - Catheter Urine Culture - Final Culture exhibits no growth. 05/12/20 21:55 Blood Culture (Wb) - Left Forearm Blood Culture - Preliminary No growth in 48 hours. 05/12/20 21:50 Blood Culture (Wb) - Anticubital Right Blood Culture - Preliminary No growth in 48 hours. 05/12/20 08:13 Stool Enteric Bacteriology - Final 05/12/20 08:13 Stool C. difficile DNA Amplification - Final 05/12/20 08:13 Stool Stool Occult Blood (VIRY) - Final Occult Blood Positive 05/12/20 08:13 Stool Stool Lactoferrin - Final 05/13/20 00:35 Mucosa - Nasopharyngeal Respiratory Panel (PCR) - Final Goal Trough: 15-20 mcg/mL Pharmacy Plan for Drug Dosing: VANCOMYCIN LEVEL RECEIVED Current Vancomycin Dose: 1250mg q12h () Number of Doses Received: 2 x 1250mg, 1 x 1000mg Vancomycin Level: 17.2 Hours Since Last Dose: 11 Renal Function: 0.53 Renal Function Trend: stable Lab/Micro: Vancomycin Plan/Comments: keep pt on current dose of 1250mg q12h and recheck level after 4 more doses administered to make sure she's not accumulating Pending Level: 05/19/20 at 0730 Pharmacy Service will continue to monitor and adjust dosing as required. Follow-Up Labs: Trough Vancomycin - 05/19/20 AT 0730
--- NOTE | 2020-05-16 09:16 | CASEMGMT ---
Addendum entered by Willa Ram 05/16/20 13:18: Script for Walker obtained from Dr Bernal and faxed to [facility]. Per Dr Bernal, anticipate pt will d/c home today or tomorrow. Script faxed to [facility] at this time and call placed to Meghan @ [facility]. Per Meghan, they will deliver walker to pt's room today. Original Note: JUANA BO NOTE: Call placed to [facility] and referral made. They are able to accept pt for SN and PT/OT and start of care will be w/in 48 hrs of discharge. Ladan CORTEZ RN CM
[2020-05-16] MEDS: Pantoprazole Sodium 20 MG Tablet PO ×2 (09:23→21:59)
[2020-05-16] MEDS: Escitalopram Oxalate 20 MG Tablet PO (09:23)
[2020-05-16] MEDS: Enoxaparin 40 MG/0.4 ML Syringe SC (09:23)
[2020-05-16] MEDS: Memantine Hydrochloride 10 MG Tablet PO ×2 (09:23→21:59)
[2020-05-16 09:45] VITALS: BP 128/53; PULSE 72; RESP 16; TEMP 36.7; O2SAT 99
[2020-05-16] MEDS: 0.9% Normal Saline 1,000 ML 100 ML IV (12:02)
[2020-05-16 14:40] VITALS: BP 118/54; PULSE 70; RESP 16; TEMP 36.9; O2SAT 96
--- NOTE | 2020-05-16 16:58 | PN_ITS ---
Patient Problems: Active and Suspected Problems FUO (fever of unknown origin) (Acute) Change in mental status (Acute) Subjective: Feeling okay, did not sleep very well last night. No issues overnight. Vitals/I&O's: Vital Signs Temp Pulse Resp BP Pulse Ox 98.4 F 70 16 118/54 L 96 05/16/20 14:40 05/16/20 14:40 05/16/20 14:40 05/16/20 14:40 05/16/20 14:40 Oxygen Delivery Method Room Air Weight: 145 lb 1.027 oz Body Mass Index (BMI) 32.1 Finger Stick Blood Glucose 168 Intake and Output for Last 24 Hours 05/14/20 05/15/20 05/16/20 23:59 23:59 23:59 Intake Total 3375.01 / 3535.01 3179.08 / 3179.08 2124.75 / 2124.75 Output Total 700 / 700 Balance 3375.01 / 3535.01 3179.08 / 3179.08 1424.75 / 1424.75 General: Alert, Cooperative, No apparent distress, - - She knows who she is and that she is in [place] she is not aware. HEENT: Atraumatic, PERRLA, EOMI, Normocephalic Oral: Moist Mucosa Neck: Supple, No JVD Lungs: Clear to auscultation, Normal air movement, No rhonchi, No wheeze, No rales, Diminished Cardiovascular: Regular rate, Regular Rhythm, Normal S1, Normal S2, No murmurs Abdomen: Soft, Non Tender, Non-Distended, No Hepato-splenomegaly Extremities: No edema, Capillary Refill Less than 3 Seconds Skin: No rashes, No breakdown Musculoskeletal: - - Bilateral knees are swollen however there is no erythema surrounding this Neurological: Neuro grossly intact, Sensory exam intact to light touch and pain Psych/Mental Status: Normal Affect, Appropriate Microbiology Past 72 Hours 05/14/20 14:25 Fluid - Synovial (joint) Gram Stain - Final 05/14/20 14:25 Fluid - Synovial (joint) Body Fluid Culture - Preliminary No growth-Final to follow 05/14/20 14:25 Fluid - Synovial (joint) Gram Stain - Final 05/14/20 14:25 Fluid - Synovial (joint) Body Fluid Culture - Preliminary No growth-Final to follow 05/12/20 22:15 Urine Catheter - Catheter Urine Culture - Final Culture exhibits no growth. 05/12/20 21:55 Blood Culture (Wb) - Left Forearm Blood Culture - Preliminary No growth in 48 hours. 05/12/20 21:50 Blood Culture (Wb) - Anticubital Right Blood Culture - Preliminary No growth in 48 hours. Laboratory Results 05/16/20 06:50: WBC 6.9, RBC 2.95 L, Hgb 8.8 L, Hct 27.2 L, MCV 92.2, MCH 29.8, MCHC 32.4, RDW Std Deviation 48.2 H, RDW Coeff of Jonathan 14.3, Plt Count 171, MPV 10.1 05/16/20 06:50: Sodium 140, Potassium 3.2 L, Chloride 112 H, Carbon Dioxide 24.0, Anion Gap 4 L, BUN 10, Creatinine 0.53 L, Estim Creat Clear Calc 42.62, Est GFR (MDRD) Af Amer 145, Est GFR (MDRD) Non-Af 120, BUN/Creatinine Ratio 18.8, Glucose 116 H, Calcium 7.6 L 05/16/20 06:50: Vancomycin Trough 17.2 H Current Medications Acetaminophen (Tylenol) 650 mg PO Q6H PRN PRN PRN Reason: Pain Score 1-10/Temp > 100.7 F Last Admin: 05/16/20 12:01 Dose: 650 mg Documented by: Acetaminophen (Tylenol) 650 mg RECTAL Q4H PRN PRN PRN Reason: Pain Score 1-10/10/FEVER Al Hydroxide/Mg Hydroxide (Mylanta Ii) 30 ml PO Q6H PRN PRN PRN Reason: Gastric Burning Albuterol Sulfate (Ventolin Aerosols) 2.5 mg INHALATION Q2H PRN PRN PRN Reason: Dyspnea, wheezing Atorvastatin Calcium (Lipitor) 10 mg PO QHS [facility] Last Admin: 05/15/20 21:46 Dose: 10 mg Documented by: Donepezil HCl (Aricept) 5 mg PO QHS [facility] Last Admin: 05/15/20 21:45 Dose: 5 mg Documented by: Enoxaparin Sodium (Lovenox) 40 mg SC DAILY [facility] Last Admin: 05/16/20 09:23 Dose: 40 mg Documented by: Escitalopram Oxalate (Lexapro) 20 mg PO DAILY [facility] Last Admin: 05/16/20 09:23 Dose: 20 mg Documented by: Guaifenesin (Robitussin) 20 ml PO Q4H PRN PRN PRN Reason: COUGH Hydralazine HCl (Apresoline Iv) 10 mg IV Q4H PRN PRN PRN Reason: SBP > 160 Sodium Chloride () 1,000 mls @ 100 mls/hr IV .Q10H [facility] Last Admin: 05/16/20 12:02 Dose: 100 mls/hr Documented by: Sodium Chloride () 250 mls @ 15 mls/hr IV .[id number] PRN PRN Reason: Saline Flush Last Infusion: 05/16/20 10:01 Dose: 15 mls/hr Documented by: Sodium Chloride () 250 mls @ 15 mls/hr IV .[id number] PRN PRN Reason: Additional IVPB Infusion Meropenem 1 gm/ Sodium (Chloride) 120 mls @ 33 mls/hr IV Q8 [facility] Last Admin: 05/16/20 13:57 Dose: 33 mls/hr Documented by: Vancomycin IV Pharmacy to Dose (1 ea/ Sodium Chloride) 500 mls @ 250 mls/hr IV X1 PRN; Protocol PRN Reason: Rx to Dose Vancomycin HCl 1,250 mg/ (Sodium Chloride) 275 mls @ 167 mls/hr IV Q12H [facility] Last Infusion: 05/16/20 10:01 Dose: Infused Documented by: Melatonin (Melatonin) 3 mg PO QHS PRN PRN PRN Reason: INSOMNIA Last Admin: 05/15/20 21:45 Dose: 3 mg Documented by: Memantine (Namenda) 10 mg PO BID [facility] Last Admin: 05/16/20 09:23 Dose: 10 mg Documented by: Nitroglycerin (Nitrostat) 0.4 mg SUBLINGUAL Q5M PRN PRN Reason: CARDIAC/CHEST PAIN Nutritional Formula (Lactose Free) (Ensure Enlive) 120 ml PO 4X/DAY [facility] Last Admin: 05/16/20 13:57 Dose: 120 ml Documented by: Ondansetron HCl (Zofran) 4 mg IV Q8H PRN PRN PRN Reason: NAUSEA/VOMITING Oxycodone HCl (Oxyir) 5 mg PO Q4H PRN PRN PRN Reason: Pain Score 4-5/10 Last Admin: 05/14/20 18:17 Dose: 5 mg Documented by: Pantoprazole Sodium (Protonix) 20 mg PO BID [facility] Last Admin: 05/16/20 09:23 Dose: 20 mg Documented by: Prochlorperazine Edisylate (Compazine Iv) 5 mg IV Q4H PRN PRN PRN Reason: Breakthrough nausea/vomiting Sodium Chloride () 10 - 40 ml IV UD PRN PRN Reason: SALINE FLUSH Last Admin: 05/15/20 08:16 Dose: 10 ml Documented by: Throat Lozenges (Cepacol Sore Throat Lozenge) 1 lozenge MUCOUS MEM Q2H PRN PRN PRN Reason: SORE THROAT STROKE Vital Signs/Narrative: Vital Signs Temp Pulse Resp BP Pulse Ox 05/16/20 14:40 98.4 F 70 16 118/54 L 96 Medical Necessity - Tobacco Use Smoking Status: Never smoker Tobacco Use: Non-smoker Assessment/Plan All Active Problems History of peptic ulcer disease (Acute) Perforated ulcer (Resolved) FUO (fever of unknown origin) (Acute) Change in mental status (Acute) 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 Cultures are still pending though are preliminarily negative, blood cultures are negative and urine culture is negative -Continue with meropenem and vancomycin, because she had had a few doses of antibiotics before she had her knee tapped, on discharge we will plan to continue with p.o. Levaquin for 10 days -Pathology of the synovial fluid is still pending, there is no crystals seen on the right knee and it felt that this is inflammatory there is no bacteria cells or crystals seen 2. GERD status post recent laparoscopic repair of a perforated peptic ulcer -Continue with PPI -Stable 3. HLD/HTN -Blood pressures are stable, will hold her hydrochlorothiazide as this can lead to hyperuricemia, pending pathology review of the synovial fluid -Continue with statin 4. Dementia/depression -Stable -Continue with Aricept, Namenda, Lexapro DVT: Lovenox Inpatient E&M: [id number] Subs Hosp L2
[2020-05-16 20:28] VITALS: BP 157/58; PULSE 76; RESP 16; TEMP 37.1; O2SAT 97
[2020-05-16] MEDS: Donepezil HCl 5 MG Tablet PO (21:59)
[2020-05-16] MEDS: Atorvastatin Calcium 10 MG Tablet PO (21:59)
[2020-05-17 03:00] VITALS: BP 140/63; PULSE 74; RESP 16; TEMP 38.1; O2SAT 94
[2020-05-17] MEDS: 0.9% Normal Saline 1,000 ML 100 ML IV (03:52)
[2020-05-17] MEDS: Acetaminophen 325 MG Tablet 650 MG PO (03:58)
[2020-05-17 05:41] LABS: Absolute Lymphocyte Count 0.84 X10^3/uL (0.83-4.51); Basophil# 0.02 X10^3/uL; Basophil% 0.3 % (0-1); Eosinophil# 0.06 X10^3/uL; Eosinophils% 0.8 % (0-5); Hematocrit 26.8 % (37-47); Hemoglobin 8.7 g/dL (12.0-15.0); Lymphocyte # 0.84 X10^3/ul (4.0); Lymphocyte % 11.2 % (19-41); Mean Corp Hgb Conc 32.5 g/dL (32-36); Mean Corpuscular Hgb 30.3 pg (27.0-32.0); Mean Corpuscular Volume 93.4 fL (81-99); Mean Platelet Vol. 10.2 fl (6.2-12.0); Monocyte# 0.52 X10^3/uL; Monocyte% 6.9 % (0-10); NRBC Flagged by Analyzer 0 % (0-5); Neutrophil # 6.03 X10^3/uL (2.7-7.7); Neutrophil % 80.3 % (47-70); Platelet Count 173 K/mm3 (150-450); RBC Distribution Width CV 14.5 % (11.6-14.6); RBC Distribution Width SD 49.3 fl (35.1-43.9); Red Blood Count 2.87 M/mm3 (4.2-5.4); White Blood Count 7.5 K/mm3 (4.4-11.0)
[2020-05-17 06:03] LABS: Anion Gap 7 (5-15); BUN 10 mg/dL (7-18); BUN/Creat Ratio 19.2 RATIO (10-20); Calcium,Total 7.2 mg/dL (8.5-10.1); Chloride 113 mmol/L (98-107); Creatinine, Serum 0.52 mg/dL (0.55-1.02); EST Glomerular Filtration Rate 122 mL/min (>60); Est Glom Filt Rate - Afr Amer 148 mL/min (>60); Estimated Creatinine Clearance 42.62 ml/min; Glucose 101 mg/dL (74-106); Potassium 3.6 mmol/L (3.5-5.1); Sodium Level 144 mmol/L (136-145)
--- NOTE | 2020-05-17 08:24 | DCINST_ITS ---
- Discharge Diagnoses Current Active Problems: Current Active and Chronic Problems FUO (fever of unknown origin) (Acute) Change in mental status (Acute) History of dementia (Chronic) Anxiety and depression (Chronic) You will use the following diet at home:: Regular Your food should be the consistency of: Regular Your liquids should be the consistency of: Regular/Thin Discharge Activity: Return to Normal Activity Call your doctor if you observe: Fever of 101 or Higher, Shortness of breath, Dizziness, Fainting spells, Swelling in the ankles, Chest pain, Increased palpitations (irregular heartbeat) Additional Instructions: Obtain a BMP by your PCP to monitor your potassium levels. Allergies/Adverse Reactions: Allergies Penicillins Allergy (Intermediate, Verified 04/15/20 03:56) Hives clindamycin Adverse Reaction (Verified 04/15/20 03:56) Vomiting Medications to take at Discharge Hydrochlorothiazide [Hctz] 25 mg PO DAILY 07/28/13 Simvastatin [Zocor] 20 mg PO QHS 07/28/13 Donepezil HCl [Aricept] 5 mg PO QHS 05/12/20 Escitalopram Oxalate [Lexapro] 20 mg PO DAILY 05/12/20 Memantine HCl [Namenda Xr] 28 mg PO DAILY 05/12/20 levoFLOXacin tablet [Levaquin tablet] 750 mg PO QODAY #7 tab 05/17/20 The following prescriptions were given: levoFLOXacin tablet [Levaquin tablet] 750 mg PO QODAY #7 tab Transmission Status: Pending to [facility] Primary Care Physician: Veronika Austin MD [Primary Care Provider] - Please follow up with your Primary Care Physician in: 3-5 days Test Results: Test results from this visit will be discussed in further detail at your follow- up appointment, if applicable.
[2020-05-17] MEDS: Pantoprazole Sodium 20 MG Tablet PO (08:50)
[2020-05-17] MEDS: Escitalopram Oxalate 20 MG Tablet PO (08:50)
[2020-05-17] MEDS: Memantine Hydrochloride 10 MG Tablet PO (08:51)
[2020-05-17 08:54] VITALS: BP 125/58; PULSE 64; RESP 20; TEMP 36.8; O2SAT 97
[2020-05-17 13:38] LABS: Pathologist Review Reviewed
--- NOTE | 2020-05-17 14:53 | PHA.DC.MC ---
Pharmacy Service has performed discharge medication reconciliation and counseling for this patient. 1. LEVOFLOXACIN 750MG PO EVERY OTHER DAY X 7 DAYS The patient's discharge medication list was reviewed for discrepancies and discrepancies were resolved. Home Medications Hydrochlorothiazide [Hctz] 25 mg PO DAILY 07/28/13 Simvastatin [Zocor] 20 mg PO QHS 07/28/13 Donepezil HCl [Aricept] 5 mg PO QHS 05/12/20 Escitalopram Oxalate [Lexapro] 20 mg PO DAILY 05/12/20 Memantine HCl [Namenda Xr] 28 mg PO DAILY 05/12/20 levoFLOXacin tablet [Levaquin tablet] 750 mg PO QODAY #7 tab 05/17/20 The patient was counseled on the following discharge medications and changes in medications for homegoing were reviewed. The Reason for Use, instructions for use, and potential side effects were reviewed for all new medications. The patient's questions regarding all of their medications were answered. The patient was able to verbally demonstrate an understanding of their discharge medications. Patient counseled by student support counselor, Helen.
--- NOTE | 2020-05-17 17:18 | PCM.DC.SUM ---
Discharge Date and Diagnosis Date of Admission: 05/13/20 Date of Discharge: 05/17/20 - Secondary Discharge Diagnosis Chronic Problems: Chronic Problems History of hypercholesterolemia (Chronic) History of hypertension (Chronic) History of dementia (Chronic) Anxiety and depression (Chronic) Hospital Course and Treatment Imaging Results: Clinical Impression(s) from Imaging Studies Chest X-Ray 05/12/20 22:52 IMPRESSION: No acute cardiopulmonary process. Electronically Signed: Ruma Rodriguez MD at 23:06 EDT Tel , Service support , Abdomen/Pelvis CT 05/12/20 23:22 IMPRESSION: No acute abdominopelvic abnormality. Individualized dose optimization techniques were used for this CT. at 0010 Reported and signed by: Yolis Lucas MD Electronically Signed: Yolis Lucas MD at 0:10 EDT Tel , Service support , Chest X-Ray 05/13/20 05:55 IMPRESSION: No acute cardiopulmonary abnormality. at 0621 Reported and signed by: Yolis Lucas MD Electronically Signed: Yolis Lucas MD at 6:20 EDT Tel , Service support , Knee X-Ray 05/13/20 17:09 IMPRESSION: Degenerative arthrosis. Joint effusion. Electronically Signed: Ruma Rodriguez MD at 20:13 EDT Tel , Service support , Knee X-Ray 05/13/20 17:09 IMPRESSION: Degenerative arthrosis. Joint effusion. Electronically Signed: Ruma Rodriguez MD at 19:40 EDT Tel , Service support , Consults: Ortho Operations: None Procedures: - - Bilateral knee effusion drainage Summary of Care Provided: PEr HPI: The patient is a 74 y/o F w/ PMHx: Dementia unclear type without behavioral disturbance history, Anxiety and Depression, HLD, GERD with a history of a perforated ulcer status post laparoscopic surgical repair recently who presents to the [facility] ED on 05/12/20 with history of increased generalized weakness and ongoing over the last 48 hours increased altered mental status above baseline worse since approximately 1900 on 05/12/2020 with concurrently reported loose watery stools intermittently since operative intervention. Family reports that she was taking 3 oral antibiotics following her operative intervention but she has difficulty with oral intake and will often spit her pills out.. Per family patient has not been eating well with decreased urine output secondary to also decreased oral intake. Family specifically notes that she has been stooling at least 8-10 times per day, loose prompting her to reduce her oral intake as she is afraid of having accidents. Only other complaint per patient is left knee pain which is chronic with severe osteoarthritis with knee replacement recommended however family decision to defer given severe dementia. Work-up in the ED included T 100.8, heart rate 70, BP 131/75, respiratory rate 16, 99% on room air, T-max while in the ED 101.9, CBC with WBC 7.1, hemoglobin 0.2, platelet 158 without market shift, noted lymphopenia concurrently, unremarkable coags, CMP with potassium 3.2, BUN/creatinine 20/0.77, glucose 133, lactic acid 1.0, total bilirubin 2.20, AST/ALT 19/10, urinalysis with no obvious evidence of UTI with noted specific gravity 1.010, protein 30, ketone 50, occult blood 50, negative nitrite, leukocyte esterase 25, 0 urine WBCs, 0 urine bacteria, blood culture x2 pending per ED, urine culture pending per ED, chest x-ray with no acute cardiopulmonary findings, CT abdomen and pelvis with no acute abdominopelvic abnormality. In the ED patient administered meropenem and vancomycin is unclear etiology of fever and recent operative intervention. Hospital Course: 1. Bilateral knee effusions crystal versus infectious [id number] female with significant dementia presented to the hospital with fevers of unknown origin. She did have surgery over a month ago at an outside hospital for perforated duodenal ulcer and fixed with an omental patch. She tested positive for H. pylori and was treated for that as well at that time. She had multiple blood cultures all which were negative, as well as a urine culture and stool cultures. All of which were negative. She had a CT scan of her abdomen and pelvis which did not show a leak from her omental patch. With her bilateral knee effusions she was started on IV antibiotics, broad-spectrum as a precaution with meropenem and vancomycin. Orthopedic surgery was consulted for drainage. Fluid studies did not show any crystals however did show 30,000 white blood cells which was predominantly neutrophilic with a yellow synovial color. Gram stain and fluid cultures were negative for any organisms however she was started on antibiotics on 05/12/2020 and the drainage did not occur until the afternoon of 05/14/2020. She did have significant improvement according to the family from admission to the day of discharge. She was able to ambulate with minimal assistance over 300 feet today. Based on all this I discharged her on p.o. Levaquin 750 mg every other day secondary to her creatinine clearance for 7 pills which will total over 2-week course. She needs follow-up with her PCP in 3 to 5 days for outpatient observation and management. I did discuss with the family that if she were to get worse have worsening fevers or increasing abdominal pain that she needs to follow-up with her previous surgeon for evaluation of her omental patch. She still does have little blood in her stools and in discussion with the family she states that she is no longer on a PPI, but she is unsure as to why. She was maintained on Protonix p.o. twice daily while here in the hospital and I did advise that she follow-up with her PCP and and her general surgeon to see whether or not she needs to stay on the PPI. I discussed the discharge plan with the patient and the daughter both of them expressed understanding of the risk benefits of going home today. 2. GERD's, hyperlipidemia, hypertension,, depression are all chronic medical conditions which complicate her care. Her home medications were continued where appropriate. - Physical Exam Vitals/I&O's: Vital Signs Temp Pulse Resp BP Pulse Ox 98.2 F 64 20 H 125/58 H 97 05/17/20 08:54 05/17/20 08:54 05/17/20 08:54 05/17/20 08:54 05/17/20 08:54 Oxygen Delivery Method Room Air Weight: 145 lb 1.027 oz Body Mass Index (BMI) 32.1 Finger Stick Blood Glucose 168 Intake and Output for Last 24 Hours 05/15/20 05/16/20 05/17/20 23:59 23:59 23:59 Intake Total 3179.08 / 3179.08 4078.75 / 4378.75 1624.91 / 1624.91 Output Total 700 / 700 Balance 3179.08 / 3179.08 3378.75 / 3678.75 1624.91 / 1624.91 General: Alert, Cooperative, No apparent distress, - - She knows who she is and that she is in [place] she is not aware as to where she is in [place]. HEENT: Atraumatic, PERRLA, EOMI, Normocephalic Oral: Moist Mucosa Neck: Supple, No JVD Lungs: Clear to auscultation, Normal air movement, No rhonchi, No wheeze, No rales, Diminished Cardiovascular: Regular rate, Regular Rhythm, Normal S1, Normal S2, No murmurs Abdomen: Soft, Non Tender, Non-Distended, No Hepato-splenomegaly Extremities: No edema, Capillary Refill Less than 3 Seconds Skin: No rashes, No breakdown Musculoskeletal: - - Bilateral knees are swollen however there is no erythema surrounding this and it is much improved since Friday Neurological: Neuro grossly intact, Sensory exam intact to light touch and pain Psych/Mental Status: Normal Affect, Appropriate Microbiology Past 72 Hours 05/14/20 19:01 Blood Culture (Wb) - Left Hand Blood Culture - Preliminary No growth in 48 hours. 05/14/20 18:54 Blood Culture (Wb) - Right Hand Blood Culture - Preliminary No growth in 48 hours. 05/14/20 14:25 Fluid - Synovial (joint) Gram Stain - Final 05/14/20 14:25 Fluid - Synovial (joint) Body Fluid Culture - Preliminary No growth-Final to follow 05/14/20 14:25 Fluid - Synovial (joint) Anaerobic Culture - Preliminary No growth in 48 hours. 05/14/20 14:25 Fluid - Synovial (joint) Gram Stain - Final 05/14/20 14:25 Fluid - Synovial (joint) Body Fluid Culture - Preliminary No growth-Final to follow 05/12/20 22:15 Urine Catheter - Catheter Urine Culture - Final Culture exhibits no growth. 05/12/20 21:55 Blood Culture (Wb) - Left Forearm Blood Culture - Preliminary No growth in 48 hours. 05/12/20 21:50 Blood Culture (Wb) - Anticubital Right Blood Culture - Preliminary No growth in 48 hours. Laboratory Results 05/14/20 14:25: Fl Crystal Path Review Reviewed 05/17/20 05:36: WBC 7.5, RBC 2.87 L, Hgb 8.7 L, Hct 26.8 L, MCV 93.4, MCH 30.3, MCHC 32.5, RDW Std Deviation 49.3 H, RDW Coeff of Jonathan 14.5, Plt Count 173, MPV 10.2, Immature Gran % (Auto) 0.500, Neut % (Auto) 80.3 H, Lymph % (Auto) 11.2 L, [place] % (Auto) 6.9, Eos % (Auto) 0.8, Baso % (Auto) 0.3, Absolute Neuts (auto) 6.0, Absolute Lymphs (auto) 0.84, Nucleated RBC % 0 05/17/20 05:36: Sodium 144, Potassium 3.6, Chloride 113 H, Carbon Dioxide 24.0, Anion Gap 7, BUN 10, Creatinine 0.52 L, Estim Creat Clear Calc 42.62, Est GFR (MDRD) Af Amer 148, Est GFR (MDRD) Non-Af 122, BUN/Creatinine Ratio 19.2, Glucose 101, Calcium 7.2 L Discharge Activity: Return to Normal Activity Call your doctor if you observe: Fever of 101 or Higher, Shortness of breath, Dizziness, Fainting spells, Swelling in the ankles, Chest pain, Increased palpitations (irregular heartbeat) Home Medications: Medications to take at Discharge Hydrochlorothiazide [Hctz] 25 mg PO DAILY 07/28/13 Simvastatin [Zocor] 20 mg PO QHS 07/28/13 Donepezil HCl [Aricept] 5 mg PO QHS 05/12/20 Escitalopram Oxalate [Lexapro] 20 mg PO DAILY 05/12/20 Memantine HCl [Namenda Xr] 28 mg PO DAILY 05/12/20 levoFLOXacin tablet [Levaquin tablet] 750 mg PO QODAY #7 tab 05/17/20 Following Prescriptions Were Given to Patient: levoFLOXacin tablet [Levaquin tablet] 750 mg PO QODAY #7 tab Transmission Status: Received by [facility] Primary Care Physician: Veronika Austin MD [Primary Care Provider] - Please follow up with your Primary Care Physician in: 3-5 days Medical Necessity - Tobacco Use Smoking Status: Never smoker Tobacco Use: Non-smoker Meaningful Use Info Meaningful Use Diagnoses (Choose all that apply): None applicable Inpatient E&M: 47990 [facility]
== END 2020-05-17 14:55 | disposition home health service (06) | DRG 554 ==
LOC: ED 05-13 00:26 → MS3 05-13 00:28
PROVIDERS: Internal Medicine; Specialist; Admitting Provider Family Medicine; Emergency Provider Emergency Medicine; PCP Internal Medicine; Visit Provider Family Medicine
DX: M11.9 Crystal arthropathy, unspecified (principal); F02.81 Dementia in other diseases classified elsewhere, unspecified severity, with behavioral disturbance; K21.9 Gastro-esophageal reflux disease without esophagitis; I10 Essential (primary) hypertension; F41.8 Other specified anxiety disorders; E78.5 Hyperlipidemia, unspecified; Z87.11 Personal history of peptic ulcer disease; G30.9 Alzheimer's disease, unspecified; Z98.890 Other specified postprocedural states; E87.6 Hypokalemia; Z87.440 Personal history of urinary (tract) infections; R13.10 Dysphagia, unspecified; R62.7 Adult failure to thrive
CPT/HCPCS: 36415; 51702; 71045; 73560; 74177; 80048; 80053; 80202; 81001; 82274; 82728; 83605; 83615; 83630; 83735; 84145; 85025; 85027; 85610; 85730; 86140; 87040; 87070; 87075; 87086; 87205; 87493; 87506; 87633; 87635; 87641; 89050; 89051; 89060; 92507; 92526; 92610; 93005; 94660; 97110; 97116; 97162; 97166; 97530; 97535; 97802; 97803; 99251; 99285; C9803; J2185; J7030; J7040; J7050; Q9967; A4216; G0463; U0003

== ENCOUNTER 2020-05-31 13:10 | Outpatient (RCR) | payer MEDICARE, SELFPAY ==
[2020-05-13 02:38] VITALS: BMI 32.1
[2020-05-31 13:37] LABS: Absolute Lymphocyte Count 1.34 X10^3/uL (0.83-4.51); Absolute Neutrophil Count 4.4 X10^3/uL (2.0-7.7); Basophil# 0.07 X10^3/uL; Basophil% 1.1 % (0-1); Eosinophil# 0.07 X10^3/uL; Eosinophils% 1.1 % (0-5); Hematocrit 36.3 % (37-47); Hemoglobin 11.1 g/dL (12.0-15.0); Lymphocyte # 1.34 X10^3/ul (4.0); Lymphocyte % 20.8 % (19-41); Mean Corp Hgb Conc 30.6 g/dL (32-36); Mean Corpuscular Hgb 29.3 pg (27.0-32.0); Mean Corpuscular Volume 95.8 fL (81-99); Mean Platelet Vol. 10.5 fl (6.2-12.0); Monocyte# 0.51 X10^3/uL; Monocyte% 7.9 % (0-10); NRBC Flagged by Analyzer 0 % (0-5); Neutrophil # 4.41 X10^3/uL (2.7-7.7); Neutrophil % 68.6 % (47-70); Platelet Count 460 K/mm3 (150-450); RBC Distribution Width CV 13.8 % (11.6-14.6); RBC Distribution Width SD 48.5 fl (35.1-43.9); Red Blood Count 3.79 M/mm3 (4.2-5.4); White Blood Count 6.4 K/mm3 (4.4-11.0)
[2020-05-31 13:47] LABS: ALB/GLOB Ratio 0.6 RATIO (0.9-2.4); AST(SGOT) 18 U/L (15-37); Alanine Aminotransfer ALT/SGPT 17 U/L (13-56); Albumin, Serum 2.8 g/dL (3.2-5.0); Alkaline Phosphatase 86 U/L (45-117); Anion Gap 5 (5-15); BUN 35 mg/dL (7-18); Calcium,Total 9.3 mg/dL (8.5-10.1); Chloride 106 mmol/L (98-107); Creatinine, Serum 1.03 mg/dL (0.55-1.02); EST Glomerular Filtration Rate 56 mL/min (>60); Est Glom Filt Rate - Afr Amer 67 mL/min (>60); Globulin 4.5 g/dL (2.2-4.2); Glucose 76 mg/dL (74-106); Potassium 3.7 mmol/L (3.5-5.1); Protein, Total 7.3 g/dL (6.4-8.2); Sodium Level 142 mmol/L (136-145)
== END 2020-05-31 23:59 ==
LOC: HHLAB 13:10
PROVIDERS: PCP Internal Medicine; Referring Provider Internal Medicine; Visit Provider Internal Medicine
DX: E83.51 Hypocalcemia (principal)
CPT/HCPCS: 80053; 85025

== ENCOUNTER 2022-07-22 14:04 | Emergency (ER) | payer MEDICARE, SELFPAY ==
[2022-07-22 14:09] VITALS: BP 139/69; PULSE 61; RESP 16; TEMP 36.7; O2SAT 96; BMI 25.1
--- NOTE | 2022-07-22 18:26 | ED.VIS.GI ---
HPI HPI - GI History of Present Illness Chief Complaint: Abd Pain Informant: spouse/S.O. and family Narrative Narrative: History of Alzheimer's dementia at baseline here with daughter and spouse with history. Reports intermittent left lower quadrant abdominal pain for the past month. Would come and go. She did get constipated had a bowel movement yesterday that was hard. Colonoscopies in the past. No history of diverticulitis. Reports seeing PCP office however the last 3 weeks had concerns for UTI treated with liquid Bactrim. With her Alzheimer's just difficulty with taking pills in general. No swallowing issues. No nausea or vomiting. She had a perfect gastric ulcer 2 years ago with surgical management transferred from this hospital up to [place]. No fevers. Patient does report and point to left lower quadrant pain. Prior similar symptoms: No PFSH PFSH Medical History Arthritis Breast lump Disorder of bone and cartilage, unspecified Diverticulosis of colon (without mention of hemorrhage) GERD (gastroesophageal reflux disease) History of hypertension Hyperlipidemia Papilloma of left breast Sleep apnea Home Medications hydrochlorothiazide 25 mg tablet 25 mg PO DAILY 07/28/13 [History Last Taken Unknown] escitalopram oxalate 20 mg tablet (Lexapro) 20 mg PO DAILY 03/17/22 [History Last Taken Unknown] pantoprazole 20 mg tablet,delayed release 40 mg PO DAILY 03/17/22 [History Last Taken Unknown] simvastatin 20 mg tablet 20 mg PO DAILY 03/17/22 [History Last Taken Unknown] donepezil 10 mg tablet 10 mg PO QAM #90 tabs 03/18/22 [Rx Last Taken Unknown] lidocaine-prilocaine 2.5 %-2.5 % topical cream See Rx Instructions .Route .COMPLEX #30 grams 03/18/22 [Rx Last Taken Unknown] memantine 28 mg capsule sprinkle,extended release 24hr 28 mg PO DAILY #30 ea 03/18/22 [Rx Last Taken Unknown] mirtazapine 30 mg tablet 30 mg PO QHS #30 tabs 03/18/22 [Rx Last Taken Unknown] docusate sodium 100 mg capsule (DulcoEase) 100 mg PO BID #60 caps 07/22/22 [Rx Last Taken Unknown] Allergy/AdvReac Type Severity Reaction Status Date / Time meloxicam Allergy Other Verified 07/22/22 14:09 Penicillins Allergy Hives Verified 07/22/22 14:09 clindamycin AdvReac Vomiting Verified 07/22/22 14:09 Family History Father Tuberculosis Leukemia Dementia Arthritis Mother CVA (cerebral vascular accident) Hypertension CAD (coronary artery disease) Arthritis Osteoporosis Grandmother Breast cancer Aunt Cancer Sister Diabetes Daughter Celiac disease Surgical History History of breast biopsy History of breast surgery History of colonoscopy History of knee surgery History of tonsillectomy History of tubal ligation Hx of LASIK Social History Smoking Status: Never smoker alcohol intake: current alcohol intake frequency: holidays/special occasions only substance use type: does not use seatbelt use: always ROS ROS ED Constitutional Constitutional ED: Denies chills, fever(s) or sweats Eyes Eyes: Denies change in vision ENT ENT ED: Denies dysphagia or sore throat Cardiovascular Cardiovascular: Denies chest pain, leg edema, palpitations or racing heartbeat Respiratory/Chest Respiratory/Chest: Denies cough, dyspnea or dyspnea on exertion Gastrointestinal Gastrointestinal: Reports abdominal pain and constipation; Denies diarrhea, nausea or vomiting Genitourinary Genitourinary ED: Denies dysuria, hematuria or urinary frequency Musculoskeletal Musculoskeletal: Denies back pain, extremity pain or neck pain Integumentary Denies rash or wounds Neurologic Neurologic: Denies headache(s), paresthesias or weakness EXAM Physical Exam Const Vital Signs: 07/22/22 14:09 Temperature 98.0 F Temperature Source Temporal Pulse Rate 61 Respiratory Rate 16 Blood Pressure 139/69 H Blood Pressure Mean 92 Pulse Ox 96 Oxygen Delivery Method Room Air Positive well nourished and well developed Constitutional Narrative: Smiling, at baseline, nontoxic General Appearance ED: well developed and NAD HEENT Reports moist mucous membranes normocephalic and atraumatic Eyes PERRL, EOMs intact bilaterally and conjunctivae normal General Eye ED: Yes normal appearance of both eyes Neck no lymphadenopathy and supple General: Negative for tenderness Chest Wall Chest: Negative for tenderness Resp normal respiratory effort and normal air movement Effort and Inspection: symmetric chest movement; Negative for respiratory distress Cardio regular rate, regular rhythm and no murmurs Peripheral Pulses: pulses 2+ throughout GI normal to inspection, nondistended, normoactive bowel sounds GI Narrative: Tender palpation left lower quadrant, no rebound or guarding. Negative Matamoros's or McBurney's tenderness. Palpation: Negative for guarding or rebound tenderness present Back/Spine no CVA tenderness and no thoracic nor lumbar tenderness Extremity normal to inspection General Extremety ED: Negative for edema or tenderness General Extremity: Negative for edema Neuro oriented x3 and no sensory deficits noted Sensorium / Orientation: awake and alert Skin no rashes or lesions noted and no wounds MDM MDM MDM Narrative Medical decision making narrative: Patient tenderness left lower quadrant no guarding or rebound. 1 month of on and off symptoms. Work-up edition labs White count 6.6 hemoglobin 13 creatinine 0.9. Potassium 3.3. Lipase normal liver enzymes negative. CT scan negative for any acute process. Urine did note nitrites and leukocytes. She is at baseline mental status with her dementia, she has no fevers they report no urine changes. Urine culture sent. Discussed without symptoms no indication for treatment at this time. Await for culture results. Should be called if positive. Potassium 3.3, order for liquid potassium however patient would not want to take this. This was not significantly low. Patient follow-up as an outpatient. Return precaution discussed. All questions were answered. Lab Data Attestation: I reviewed the patient's lab results. Labs: Laboratory Results - last 24 hr 07/22/22 07/22/22 07/22/22 18:30 18:30 19:54 WBC 6.6 RBC 4.34 Hgb 13.0 Hct 39.5 MCV 91.0 MCH 30.0 MCHC 32.9 RDW Std Deviation 45.1 H RDW Coeff of Jonathan 13.4 Plt Count 195 MPV 10.1 Immature Gran % (Auto) 0.200 Neut % (Auto) 51.8 Lymph % (Auto) 38.5 [place] % (Auto) 7.6 Eos % (Auto) 1.1 Baso % (Auto) 0.8 Absolute Neuts (auto) 3.4 Absolute Lymphs (auto) 2.53 Nucleated RBC % 0 Sodium 144 Potassium 3.3 L Chloride 108 H Carbon Dioxide 31.0 Anion Gap 5 BUN 20 H Creatinine 0.90 Estim Creat Clear Calc 47.85 Est GFR (MDRD) Af Amer 78 Est GFR (MDRD) Non-Af 64 BUN/Creatinine Ratio 22.1 H Glucose 117 H Calcium 9.1 Total Bilirubin 0.50 Direct Bilirubin 0.11 AST 20 ALT 19 Alkaline Phosphatase 72 Total Protein 6.6 Albumin 3.4 Globulin 3.2 Lipase 149 Urine Color Yellow Urine Clarity Sl. Cloudy Urine pH 7.0 Ur Specific [place] 1.010 Urine Protein 100 H Urine Glucose (UA) 100 H Urine Ketones Negative Urine Occult Blood 50 H Urine Nitrite Positive H Urine Bilirubin Negative Urine Urobilinogen 4 H Ur Leukocyte Esterase 500 H Urine RBC Cancelled Urine WBC Cancelled Ur Squamous Epith Cells Cancelled Ur Transition Epith Cell Cancelled Ur Renal Epithelial Cell Cancelled Calcium Oxalate Crystal Cancelled Uric Acid Crystals Cancelled Triple Phos Crystals Cancelled Other Crystals Cancelled Amorphous Sediment Cancelled Urine Bacteria Cancelled Hyaline Casts Cancelled Fine Granular Casts Cancelled Coarse Granular Casts Cancelled Waxy Casts Cancelled RBC Casts Cancelled WBC Casts Cancelled Urine Mucus Cancelled Urine Trichomonas Cancelled Urine Yeast Cancelled Radiography Diagnostic Testing: Clinical Impression(s) from Imaging Studies Abdomen/Pelvis CT 07/22/22 18:49 IMPRESSION: No acute findings in the abdomen or pelvis. Electronically Signed: Fan Mack MD at 19:19 EST , Discharge Plan Triage Chief Complaint: Abd Pain ED Provider: Benji Yoon Dx/Rx/DC Orders Clinical Impression: Abdominal pain, LLQ, Dementia, Acute hypokalemia Instructions: Abdominal Pain Prescriptions: New docusate sodium [DulcoEase] 100 mg capsule 100 mg PO BID Qty: 60 0RF No Action pantoprazole 20 mg tablet,delayed release (DR/EC) 40 mg PO DAILY simvastatin 20 mg tablet 20 mg PO DAILY escitalopram oxalate [Lexapro] 20 mg tablet 20 mg PO DAILY donepezil 10 mg tablet 10 mg PO QAM Qty: 90 1RF memantine 28 mg capsule,sprinkle,ER 24hr 28 mg PO DAILY Qty: 30 4RF mirtazapine 30 mg tablet 30 mg PO QHS Qty: 30 4RF lidocaine-prilocaine 2.5-2.5 % cream See Rx Instructions .ROUTE .COMPLEX Qty: 30 4RF Rx Instructions: Apply topically QID prn knee pain hydrochlorothiazide 25 MG tablet 25 mg PO DAILY Primary Care Provider: Veronika Austin Referrals: Veronika Austin MD [Primary Care Provider] - 3-5 Days Activity Restrictions/Additional Instructions: CT scan abdomen pelvis negative. Labs only significant potassium 3.3. Your urine has signs of infection however clinically no symptoms. Urine culture is sent and pending. If positive you will be contacted for treatment. Follow-up with your doctor. Return if any worsening symptoms. Disposition Disposition: Home, Self Care Discharge Date/Time: 07/22/22 21:20
[2022-07-22 18:37] LABS: Absolute Lymphocyte Count 2.53 X10^3/uL (0.83-4.51); Absolute Neutrophil Count 3.4 X10^3/uL (2.0-7.7); Basophil# 0.05 X10^3/uL; Basophil% 0.8 % (0-1); Eosinophil# 0.07 X10^3/uL; Eosinophils% 1.1 % (0-5); Hematocrit 39.5 % (37-47); Lymphocyte # 2.53 X10^3/ul (0.83-4.51); Lymphocyte % 38.5 % (19-41); Mean Corp Hgb Conc 32.9 g/dL (32-36); Mean Platelet Vol. 10.1 fl (6.2-12.0); Monocyte% 7.6 % (0-10); NRBC Flagged by Analyzer 0 % (0-5); Neutrophil # 3.41 X10^3/uL (2.7-7.7); Neutrophil % 51.8 % (47-70); Platelet Count 195 K/mm3 (150-450); RBC Distribution Width CV 13.4 % (11.6-14.6); RBC Distribution Width SD 45.1 fl (35.1-43.9); Red Blood Count 4.34 M/mm3 (4.2-5.4); White Blood Count 6.6 K/mm3 (4.4-11.0)
--- NOTE | 2022-07-22 18:49 | CT_ITS ---
EXAM: CT ABDOMEN AND PELVIS WITHOUT INTRAVENOUS CONTRAST CLINICAL INDICATION: abd pain -- LLQ TECHNIQUE: Helically acquired images were obtained of the abdomen and pelvis without intravenous contrast. This CT exam was performed using one or more of the following dose reduction techniques: automated exposure control, adjustment of the mA and/or kV according to patient size, and/or use of iterative reconstruction technique. This report was created using [employer] report generation technology. COMPARISON: 05/12/2020 FINDINGS: LOWER THORAX: There is a stable partially calcified nodule within the right middle lobe compatible with a granuloma. No cardiomegaly. No significant pericardial effusion. ABDOMEN: LIVER: Unremarkable. Homogeneous. GALLBLADDER AND BILE DUCTS: Unremarkable. No calcified gallstones. No gallbladder distention or wall edema. No intra- or extrahepatic biliary ductal dilation. PANCREAS: Unremarkable. No focal cystic mass. SPLEEN: Unremarkable. Normal size without focal cystic or solid mass. ADRENALS: Unremarkable. No nodules. KIDNEYS AND URETERS: Unremarkable. Normal renal size and position. No hydronephrosis. STOMACH AND BOWEL: Sigmoid diverticula with no appreciable inflammatory change identified. No stomach or bowel distention. No focal inflammatory change. PELVIS: APPENDIX: No evidence of acute appendicitis. BLADDER: Unremarkable. REPRODUCTIVE: Unremarkable as visualized. No mass. ABDOMEN and PELVIS: INTRAPERITONEAL SPACE: Unremarkable. No ascites or other fluid collection. No free air. BONES/JOINTS: Unremarkable. No suspicious lytic or blastic abnormality. SOFT TISSUES: Unremarkable. No discrete abdominal or pelvic wall hernia. VASCULATURE: Unremarkable. Abdominal aorta is non-dilated. LYMPH NODES: Unremarkable. No enlarged lymph nodes. CT/Abdomen/Pelvis without Cont IMPRESSION: No acute findings in the abdomen or pelvis. Electronically Signed: Fan Mack MD at 19:19 [facility] ,
[2022-07-22 18:55] LABS: AST(SGOT) 20 U/L (15-37); Alanine Aminotransfer ALT/SGPT 19 U/L (13-56); Albumin, Serum 3.4 g/dL (3.2-5.0); Alkaline Phosphatase 72 U/L (45-117); Anion Gap 5 (5-15); BUN 20 mg/dL (7-18); BUN/Creat Ratio 22.1 RATIO (10-20); Bilirubin, Direct 0.11 mg/dL (0.00-0.30); Calcium,Total 9.1 mg/dL (8.5-10.1); Chloride 108 mmol/L (98-107); EST Glomerular Filtration Rate 64 mL/min (>60); Est Glom Filt Rate - Afr Amer 78 mL/min (>60); Estimated Creatinine Clearance 47.85 ml/min; Globulin 3.2 g/dL (2.2-4.2); Glucose 117 mg/dL (74-106); Lipase 149 U/L (73-393); Potassium 3.3 mmol/L (3.5-5.1); Protein, Total 6.6 g/dL (6.4-8.2); Sodium Level 144 mmol/L (136-145)
[2022-07-22 20:02] LABS: Color, Urine Yellow (Yellow); Glucose, Dipstick 100 mg/dl (Normal); Ketone-Dipstick Negative (Negative); Leukocyte Esterase-Dipstick 500 /ul (Negative); Nitrite-Dipstick Positive (Negative); Occult Blood-Urine 50 /ul (Negative); Protein-Dipstick 100 mg/dl (Negative); Urine Bilirubin Dipstick Negative (Negative); Urine Clarity Sl. Cloudy (Clear); Urine Urobilinogen 4 mg/dl (Normal)
[2022-07-22] MEDS: Potassium Chloride Oral Soln 20 MEQ/15 ML UDC PO (20:45)
== END 2022-07-22 21:20 | disposition home or self-care (01) ==
PROVIDERS: Emergency Provider Emergency Medicine; PCP Internal Medicine; Visit Provider Emergency Medicine
DX: R10.32 Left lower quadrant pain (principal); F02.80 Dementia in other diseases classified elsewhere, unspecified severity, without behavioral disturbance, psychotic disturbance, mood disturbance, and anxiety; G30.9 Alzheimer's disease, unspecified; E87.6 Hypokalemia
CPT/HCPCS: 74176; 80048; 80076; 81002; 83690; 85025; 87086; 87088; 96360; 99284; J7030

== ENCOUNTER 2023-12-09 10:25 | Emergency (ER) | payer MEDICARE, SELFPAY ==
[2023-12-09 10:26] VITALS: BP 91/53; PULSE 90; RESP 16; TEMP 36.1; O2SAT 97; BMI 22.9
--- NOTE | 2023-12-09 11:04 | EKG12_ITS ---
Test Reason : Blood Pressure : / mmHG Vent. Rate : 067 BPM Atrial Rate : 067 BPM P-R Int : 188 ms QRS Dur : 092 ms QT Int : 406 ms P-R-T Axes : 063 103 017 degrees QTc Int : 429 ms Normal sinus rhythm Rightward axis Low voltage QRS ST & T wave abnormality, consider anterolateral ischemia Abnormal ECG Confirmed by Arnaud Zendejas ([id number]), manuscript editor YANA LA ([id number]) on 12/10/2023 10:31:27 AM Referred By: Confirmed By:Arnaud Zendejas
--- NOTE | 2023-12-09 11:05 | EX.ED.DYSGE1 ---
HPI History of Present Illness Chief Complaint: Weakness Detail of Chief Complaint: Weakness and decreased p.o. intake Informant: patient Narrative Narrative: Patient presents to the emergency department with complaint of generalized weakness and decreased p.o. intake. Patient apparently has not eaten in the last 72 hours. She has had decreased fluid intake. Patient's and son are with her. Patient has history of severe dementia but they have noticed a significant change since November 30. Patient apparently had upper respiratory infection about 3 weeks ago. has medical power of workers compensation defense attorney for her. He does not believe that she would allow an IV therefore wants me to sedate her and give her IV fluids and try to figure out if there is anything significant going on regarding this change in her. He does not have intention to seek placement as he feels he can still care for her at home. Patient is essentially nonverbal not giving much history. [facility] Medical History Arthritis Breast lump Disorder of bone and cartilage, unspecified Diverticulosis of colon (without mention of hemorrhage) GERD (gastroesophageal reflux disease) History of hypertension Hyperlipidemia Papilloma of left breast Sleep apnea Home Medications hydrochlorothiazide 25 mg tablet 25 mg PO DAILY 07/28/13 [History Last Taken Unknown] escitalopram oxalate 20 mg tablet (Lexapro) 20 mg PO DAILY 03/17/22 [History Last Taken Unknown] pantoprazole 20 mg tablet,delayed release 40 mg PO DAILY 03/17/22 [History Last Taken Unknown] simvastatin 20 mg tablet 20 mg PO DAILY 03/17/22 [History Last Taken Unknown] lidocaine-prilocaine 2.5 %-2.5 % topical cream See Rx Instructions .Route .COMPLEX #30 grams 03/18/22 [Rx Last Taken Unknown] memantine 28 mg capsule sprinkle,extended release 24hr 28 mg PO DAILY #30 ea 03/18/22 [Rx Last Taken Unknown] mirtazapine 30 mg tablet 30 mg PO QHS #30 tabs 03/18/22 [Rx Last Taken Unknown] docusate sodium 100 mg capsule (DulcoEase) 100 mg PO BID #60 caps 07/22/22 [Rx Last Taken Unknown] donepezil 10 mg tablet 10 mg PO QAM #90 tabs 09/03/22 [Rx Last Taken Unknown] sulfamethoxazole 800 mg-trimethoprim 160 mg tablet 1 tab PO BID #14 TABLETS 12/09/23 [Rx Last Taken Unknown] Allergy/AdvReac Type Severity Reaction Status Date / Time meloxicam Allergy Other Verified 07/22/22 14:09 Penicillins Allergy Hives Verified 07/22/22 14:09 clindamycin AdvReac Vomiting Verified 07/22/22 14:09 Family History Father Tuberculosis Leukemia Dementia Arthritis Mother CVA (cerebral vascular accident) Hypertension CAD (coronary artery disease) Arthritis Osteoporosis Grandmother Breast cancer Aunt Cancer Sister Diabetes Daughter Celiac disease Surgical History History of breast biopsy History of breast surgery History of colonoscopy History of knee surgery History of tonsillectomy History of tubal ligation Hx of LASIK Social History Smoking Status: Never smoker alcohol intake: current alcohol intake frequency: holidays/special occasions only substance use type: does not use seatbelt use: always ROS ROS ED Review of Systems ROS Unobtainable: due to mental status and other Constitutional Constitutional ED: Reports lethargy; Denies chills, fever(s), sweats or weight loss Eyes Eyes: Denies blurry vision, change in vision or diplopia ENT ENT ED: Denies rhinorrhea or sore throat Cardiovascular Cardiovascular: Denies chest pain, orthopnea or racing heartbeat Respiratory/Chest Respiratory/Chest: Denies cough, dyspnea, dyspnea on exertion, orthopnea or sputum Gastrointestinal Gastrointestinal: Denies abdominal pain, diarrhea, nausea or vomiting Genitourinary Genitourinary ED: Denies dysuria, hematuria or urinary frequency Musculoskeletal Musculoskeletal: Denies arthralgias, back pain, myalgias or neck pain Integumentary Denies abscess, Abrasions or rash Neurologic Neurologic: Denies headache(s) or weakness Psychiatric Psychiatric: Denies anxiety, depression or suicidal thoughts Endocrine Endocrinology: Denies polydipsia, polyphagia or polyuria Hematologic/Lymphatic Hematologic/Lymphatic: Denies easy bleeding, easy bruising or lymphadenopathy Allergic/Immunologic Allergic/Immunologic ED: Denies mouth swelling, tongue swelling or urticaria EXAM Physical Exam Const Vital Signs: 12/09/23 10:26 12/09/23 12:03 12/09/23 14:10 Temperature 96.9 F L Temperature Source Temporal Pulse Rate 90 Respiratory Rate 16 Respiratory Effort Normal Non-Labored Respiratory Pattern Normal Blood Pressure 91/53 L 155/74 H Blood Pressure Mean 65 101 Pulse Ox 97 Oxygen Delivery Method Room Air 12/09/23 14:15 Temperature 97.2 F L Temperature Source Pulse Rate 81 Respiratory Rate 16 Respiratory Effort Respiratory Pattern Blood Pressure 155/74 H Blood Pressure Mean 101 Pulse Ox 98 Oxygen Delivery Method Positive well nourished and well developed General Appearance ED: well developed and NAD HEENT Reports TM's clear and moist mucous membranes normocephalic and atraumatic; Negative for trauma or tenderness Tympanic Membrane ED: Yes TM's clear Eyes PERRL and EOMs intact bilaterally General Eye ED: Negative for pale conjunctiva or scleral icterus Neck no lymphadenopathy, supple and no JVD General: Negative for tenderness Chest Wall inspection of chest normal and palpation of chest normal Chest Narrative: Patient has a small sebaceous cyst on anterior chest wall is nontender and not infected. Freely movable within the skin. Therefore I suspect this is a sebaceous cyst versus a lipoma. Chest: Negative for tenderness Resp normal respiratory effort and clear to auscultation bilaterally Effort and Inspection: Negative for respiratory distress or pain with movement Auscultation: Negative for rhonchi, wheezes or diminished lung sounds Cardio regular rate, regular rhythm, S1 normal heart sound, S2 normal heart sound and no murmurs Peripheral Pulses: pulses 2+ throughout GI normal to inspection, nondistended, normoactive bowel sounds, soft to palpation, non-tender, non-distended and no masses Back/Spine no CVA tenderness and no thoracic nor lumbar tenderness Extremity normal to inspection General Extremety ED: Negative for edema General Extremity: Negative for edema Neuro oriented x3, CN's II-XII intact bilaterally, no sensory deficits noted and gait normal Sensorium / Orientation: awake, alert, oriented to person, oriented to place and oriented to time Motor Exam: strength 5/5 throughout and strength abnormal Psych mental status grossly normal Skin no rashes or lesions noted and no wounds MDM MDM MDM Narrative Medical decision making narrative: After discussion with patient and her her family we will medicate her with Geodon for sedation in order to be able to start an IV and give patient fluids as well as investigate with lab work and urine. CBC was obtained showing a 5.7 with hemoglobin 14.2 and platelet count of 158. Chemistries unremarkable. Potassium was slightly depressed at 3.3. BUN 31 creatinine 1.32. LFTs unremarkable. Urinalysis positive for 500 leukocyte esterase and 25-50 WBCs and +2 bacteria. Urine culture was sent. Patient started on Rocephin 1 g IV. Patient did receive a liter of fluid bolus and was given Rocephin 1 g IV. Family wants to take the patient home. Clinically she looks well I do not think she is septic. They have follow-up with social media marketing manager. Patient will be treated with Bactrim. I did obtain a troponin given the patient EKG changes and this was negative. This point she will be discharged to home in stable condition. I do not feel she is having acute coronary syndrome. Lab Data Attestation: I reviewed the patient's lab results. Labs: Laboratory Results - last 24 hr 12/09/23 12/09/23 11:55 12:56 WBC 5.7 RBC 4.94 Hgb 14.2 Hct 43.8 MCV 88.7 MCH 28.7 MCHC 32.4 RDW Std Deviation 44.3 H RDW Coeff of Jonathan 13.6 Plt Count 158 MPV 11.2 Immature Gran % (Auto) 0.200 Neut % (Auto) 59.0 Lymph % (Auto) 31.7 [place] % (Auto) 7.1 Eos % (Auto) 1.1 Baso % (Auto) 0.9 Absolute Neuts (auto) 3.4 Absolute Lymphs (auto) 1.80 Nucleated RBC % 0 Sodium 141 Potassium 3.3 L Chloride 105 Carbon Dioxide 27.0 Anion Gap 9 BUN 34 H Creatinine 1.32 H Estim Creat Clear Calc 32.12 Est GFR (MDRD) Af Amer 50 L Est GFR (MDRD) Non-Af 41 L BUN/Creatinine Ratio 25.8 H Glucose 102 Calcium 9.3 Total Bilirubin 1.50 H AST 24 ALT 12 L Alkaline Phosphatase 61 Troponin I High Sens 12 Total Protein 7.1 Albumin 3.7 Globulin 3.4 Albumin/Globulin Ratio 1.1 Urine Color Yellow Urine Clarity Cloudy Urine pH 5.0 Ur Specific [place] 1.020 Urine Protein 30 H Urine Glucose (UA) Normal Urine Ketones 50 H Urine Occult Blood 50 H Urine Nitrite Negative Urine Bilirubin 3 H Urine Urobilinogen 4 H Ur Leukocyte Esterase 500 H Urine RBC 0-5 SEEN Urine WBC 25-50 SEEN Ur Squamous Epith Cells 5-10 SEEN Ur Renal Epithelial Cell 0-5 SEEN Urine Bacteria 2+ Urine Mucus 2+ EKG Initial EKG: Attestation: I personally reviewed and interpreted this EKG as follows: Comments: Sinus rhythm with ventricular rate of [address] changes patient with flipped T waves in V3 V4, V5, and V6. These are different from prior EKG from 2019. Prior EKG tracings: available for review Prior: Changed Discharge Plan Triage Chief Complaint: Weakness ED Provider: Kenzie Simmons Dx/Rx/DC Orders Clinical Impression: Altered mental status, Dementia, Acute UTI, Dehydration Instructions: Urinary Tract Infections in Women, ED ALOC, ED Dehydration (Adult) Prescriptions: New sulfamethoxazole-trimethoprim [sulfamethoxazole-trimethoprim] 800-160 mg tablet 1 tab PO BID Qty: 14 0RF No Action pantoprazole 20 mg tablet,delayed release (DR/EC) 40 mg PO DAILY simvastatin 20 mg tablet 20 mg PO DAILY escitalopram oxalate [Lexapro] 20 mg tablet 20 mg PO DAILY memantine 28 mg capsule,sprinkle,ER 24hr 28 mg PO DAILY Qty: 30 4RF mirtazapine 30 mg tablet 30 mg PO QHS Qty: 30 4RF lidocaine-prilocaine 2.5-2.5 % cream See Rx Instructions .ROUTE .COMPLEX Qty: 30 4RF Rx Instructions: Apply topically QID prn knee pain hydrochlorothiazide 25 MG tablet 25 mg PO DAILY docusate sodium [DulcoEase] 100 mg capsule 100 mg PO BID Qty: 60 0RF donepezil 10 mg tablet 10 mg PO QAM Qty: 90 1RF Primary Care Provider: Veronika Austin Referrals: Veronika Austin MD [Primary Care Provider] - 3-5 Days Disposition Disposition: Home, Self Care Discharge Date/Time: 12/09/23 14:52
[2023-12-09] MEDS: Ziprasidone IM 20 MG/ML VIAL IM (11:25)
[2023-12-09 11:58] LABS: Absolute Neutrophil Count 3.4 X10^3/uL (2.0-7.7); Basophil# 0.05 X10^3/uL; Basophil% 0.9 % (0-1); Eosinophil# 0.06 X10^3/uL; Eosinophils% 1.1 % (0-5); Hematocrit 43.8 % (37-47); Hemoglobin 14.2 g/dL (12.0-15.0); Lymphocyte % 31.7 % (19-41); Mean Corp Hgb Conc 32.4 g/dL (32-36); Mean Corpuscular Hgb 28.7 pg (27.0-32.0); Mean Corpuscular Volume 88.7 fL (81-99); Mean Platelet Vol. 11.2 fl (6.2-12.0); Monocyte% 7.1 % (0-10); NRBC Flagged by Analyzer 0 % (0-5); Neutrophil # 3.35 X10^3/uL (2.7-7.7); Platelet Count 158 K/mm3 (150-450); RBC Distribution Width CV 13.6 % (11.6-14.6); RBC Distribution Width SD 44.3 fl (35.1-43.9); Red Blood Count 4.94 M/mm3 (4.2-5.4); White Blood Count 5.7 K/mm3 (4.4-11.0)
[2023-12-09] MEDS: 0.9% Normal Saline (1000mL) 1,000 ML 1000 ML IV (12:10)
[2023-12-09 12:17] LABS: ALB/GLOB Ratio 1.1 RATIO (0.9-2.4); AST(SGOT) 24 U/L (15-37); Alanine Aminotransfer ALT/SGPT 12 U/L (13-56); Albumin, Serum 3.7 g/dL (3.2-5.0); Alkaline Phosphatase 61 U/L (45-117); Anion Gap 9 (5-15); BUN 34 mg/dL (7-18); BUN/Creat Ratio 25.8 RATIO (10-20); Calcium,Total 9.3 mg/dL (8.5-10.1); Chloride 105 mmol/L (98-107); Creatinine, Serum 1.32 mg/dL (0.55-1.02); EST Glomerular Filtration Rate 41 mL/min (>60); Est Glom Filt Rate - Afr Amer 50 mL/min (>60); Estimated Creatinine Clearance 32.12 ml/min; Globulin 3.4 g/dL (2.2-4.2); Glucose 102 mg/dL (74-106); Potassium 3.3 mmol/L (3.5-5.1); Protein, Total 7.1 g/dL (6.4-8.2); Sodium Level 141 mmol/L (136-145)
[2023-12-09 13:05] LABS: Color, Urine Yellow (Yellow); Glucose, Dipstick Normal (Normal); Ketone-Dipstick 50 mg/dl (Negative); Leukocyte Esterase-Dipstick 500 /ul (Negative); Nitrite-Dipstick Negative (Negative); Occult Blood-Urine 50 /ul (Negative); Protein-Dipstick 30 mg/dl (Negative); Urine Clarity Cloudy (Clear); Urine Urobilinogen 4 mg/dl (Normal)
[2023-12-09 13:10] LABS: Urine Bilirubin Dipstick 3 mg/dL (Negative)
[2023-12-09 13:12] LABS: Bacteria 2+ /hpf (None Seen); Mucous, Urine 2+ /hpf (<or=2+); Red Blood Cells-Urine 0-5 SEEN /hpf (0-5); Renal Epithelial Cells 0-5 SEEN /hpf (0-5); Squamous Epithelial Cells - UA 5-10 SEEN /hpf (5-10); White Blood Cells 25-50 SEEN /hpf (0-5)
[2023-12-09] MEDS: Ceftriaxone 1 GM/50 ML BAG IV (13:43)
[2023-12-09 14:10] VITALS: BP 155/74
[2023-12-09 14:15] VITALS: BP 155/74; PULSE 81; RESP 16; TEMP 36.2; O2SAT 98
[2023-12-09 14:37] LABS: Troponin-I HS 12 pg/mL (3.0-54.0)
--- NOTE | 2023-12-09 14:49 | ED.RN ---
This RN went over discharge instructions with and son. stated she cannot take pills well and she needed a liquid antibiotic. This RN stated she would speak with Dr. Simmons about getting the prescription changed. stated he has liquid antibiotics at home and he would give her that and to cancel the bactrim prescription. THis RN stated that if the wrote a script for Bactrim that is what he recommends taking and that I did not recommend to take old antibiotics that they had at home. stated I will just handle is with [facility], no need to change prescription.
== END 2023-12-09 14:52 | disposition home or self-care (01) ==
PROVIDERS: Emergency Provider Emergency Medicine; PCP Internal Medicine; Visit Provider Emergency Medicine
DX: N39.0 Urinary tract infection, site not specified (principal); F03.90 Unspecified dementia, unspecified severity, without behavioral disturbance, psychotic disturbance, mood disturbance, and anxiety; E86.0 Dehydration; G47.30 Sleep apnea, unspecified
CPT/HCPCS: 80053; 81001; 84484; 85025; 87086; 87088; 93005; 96372; 99284; P9612; A4216; J3486

== ENCOUNTER 2023-12-11 11:54 | Emergency (ER) | payer MEDICARE, SELFPAY ==
[2023-12-11] VITALS (8 sets, daily range): BP systolic 123–131; BP diastolic 60–78; PULSE 67–91; RESP 14–18; TEMP 36.6; O2SAT 94–99; BMI 24.9
--- NOTE | 2023-12-11 12:12 | CT_ITS ---
STUDY: CT BRAIN WITHOUT CONTRAST REASON FOR EXAM: Female, 77 years old. Altered mental status RADIATION DOSAGE (If Supplied By Facility): CTDIvol = ( 44.99 ) mGy, DLP = ( 745.49 ) mGycm TECHNIQUE: Transaxial CT imaging of the brain was performed without administration of intravenous contrast material. Individualized dose optimization techniques were used for this CT. COMPARISON: No relevant priors. FINDINGS: Normal soft tissue structures. Normal calvarium. There is moderate cerebral atrophy with widening of the extra-axial spaces and ventricular dilatation. There are areas of decreased attenuation within the white matter tracts of the supratentorial brain, consistent with microvascular disease changes. There are small punctate calcifications of the basal ganglia which are seen in the aging brain as a normal variant. Normal brainstem. Normal cerebellum. There is no intracranial hemorrhage. There are no findings of an acute ischemic infarction. Atherosclerotic calcification of the cavernous portions of the internal carotid arteries bilaterally. Normal visualized paranasal sinuses. CT/Brain/Head without Contrast IMPRESSION: Chronic involutional changes of the brain. Electronically Signed: David Meier MD at 13:18 EDT ,
--- NOTE | 2023-12-11 12:18 | EDS_ITS ---
HPI History of Present Illness Chief Complaint: Complaint Informant: patient and family Narrative Narrative: 77-year-old female with dementia has been taking care of at home by her for the last decade or more. Started getting more confused and agitated than usual see here in ER 2 days ago diagnosed with a urinary tract infection given IV antibiotics while here, prescribed antibiotics for home but she refuses to take them and refuses to eat, she is losing weight, and they were advised to bring her back to the ER. They have noted no other new issues. She usually talks very little but she is talking even less now that she is confused for the last couple days. Therefore, history significantly limited from the patient. [facility] Medical History Alzheimer disease Arthritis Breast lump Disorder of bone and cartilage, unspecified Diverticulosis of colon (without mention of hemorrhage) GERD (gastroesophageal reflux disease) History of hypertension Hyperlipidemia Papilloma of left breast Sleep apnea Home Medications hydrochlorothiazide 25 mg tablet 25 mg PO DAILY BLOOD PRESSURE 07/28/13 [History Last Taken 12/04/23] escitalopram oxalate 20 mg tablet (Lexapro) 20 mg PO DAILY DEPRESSION 03/17/22 [History Last Taken 12/04/23] simvastatin 20 mg tablet 20 mg PO DAILY CHOLESTEROL 03/17/22 [History Last Taken 12/04/23] memantine 28 mg capsule sprinkle,extended release 24hr 28 mg PO DAILY CONFUSION #30 ea 03/18/22 [Rx Last Taken 12/04/23] mirtazapine 30 mg tablet 30 mg PO QHS DEPRESSION #30 tabs 03/18/22 [Rx Last Taken 12/04/23] donepezil 10 mg tablet 10 mg PO QAM MEMORY #90 tabs 09/03/22 [Rx Last Taken 12/04/23] docusate sodium 100 mg capsule 100 mg PO BID CONSTIPATION 12/11/23 [History Last Taken 12/04/23] pantoprazole 40 mg tablet,delayed release 40 mg PO DAILY GERD 12/11/23 [History Last Taken 12/04/23] sulfamethoxazole 800 mg-trimethoprim 160 mg tablet 1 tab PO BID UTI 12/11/23 [History Last Taken Unknown] Allergy/AdvReac Type Severity Reaction Status Date / Time meloxicam Allergy Other Verified 12/11/23 11:58 Penicillins Allergy Hives Verified 12/11/23 11:58 clindamycin AdvReac Vomiting Verified 12/11/23 11:58 Family History Father Tuberculosis Leukemia Dementia Arthritis Mother CVA (cerebral vascular accident) Hypertension CAD (coronary artery disease) Arthritis Osteoporosis Grandmother Breast cancer Aunt Cancer Sister Diabetes Daughter Celiac disease Surgical History History of breast biopsy History of breast surgery History of colonoscopy History of knee surgery History of tonsillectomy History of tubal ligation Hx of LASIK Social History Smoking Status: Never smoker alcohol intake: current alcohol intake frequency: holidays/special occasions only substance use type: does not use seatbelt use: always ROS ROS ED Review of Systems ROS Unobtainable: due to mental condition EXAM Physical Exam Const Vital Signs: 12/11/23 11:55 12/11/23 12:57 12/11/23 13:00 Temperature 97.9 F 97.8 F 97.8 F Temperature Source Temporal Temporal Temporal Pulse Rate 67 72 72 Respiratory Rate 18 14 14 Blood Pressure 123/67 H 131/78 H 131/71 H Blood Pressure Mean 85 95 91 Pulse Ox 96 98 99 Oxygen Delivery Method Room Air Room Air Room Air 12/11/23 13:54 12/11/23 15:00 12/11/23 17:00 Temperature Temperature Source Pulse Rate 69 90 82 Respiratory Rate 16 14 Blood Pressure 129/73 H Blood Pressure Mean 91 Pulse Ox 99 98 99 Oxygen Delivery Method Room Air Room Air Room Air Positive well nourished and well developed Constitutional Narrative: Well-appearing, smiling, occasionally says a couple of words for instance as to the nurse that is good. General Appearance ED: well developed and NAD HEENT Reports moist mucous membranes normocephalic and atraumatic Eyes PERRL and EOMs intact bilaterally Neck full ROM, no lymphadenopathy and supple Resp normal respiratory effort and clear to auscultation bilaterally Cardio regular rate, regular rhythm and no murmurs Rate: Negative for tachycardic GI non-tender and non-distended Auscultation: normoactive bowel sounds Palpation: soft Back/Spine no CVA tenderness General Back: other FROM Extremity normal to inspection General Extremety ED: Negative for edema, pulses abnormal or tenderness General Extremity: Negative for edema or pulses abnormal Neuro CN's II-XII intact bilaterally and no sensory deficits noted Neuro Narrative: Moves all 4 extremities equally Sensorium / Orientation: awake, alert and orientation impaired Psych Psych Narrative: Confused, pleasant Skin no rashes or lesions noted and no wounds MDM MDM MDM Narrative Medical decision making narrative: Repeated her labs, they are normal except for slight hypokalemia 3.0, getting her repeat urinalysis was challenging because we had to straight catheter, and she was very combative for that the other day so family was amenable to anxiolysis with Versed which was done, and made it much easier on the patient and staff to get a urinalysis. I reviewed her urine culture from 2 days ago. It shows lactobacillus, likely a contaminant. This explains why her urinalysis now is normal except for ketosis which is likely because she has not been eating. I added on more testing such as CT of the head and a chest x-ray, I reviewed the CT images and the report which I agree with, negative for any acute. I reviewed the chest x-ray 2 views on my interpretation negative for nothing acute. Radiology discussed left lower lobe mild density that may represent atelectasis versus pneumonia. I favor atelectasis. She does not have leukocytosis, cough, hypoxemia, or dyspnea and her lungs are clear throughout. I did replace her potassium, it took Haldol in order to get her sedated; after talking with family, they stated that Geodon had the opposite effect on her, and Ativan gave her unpleasant side effects. I briefly discussed with medicine, who recommended adding a magnesium and phosphorus in order to address those electrolytes as well, but agrees that admitting her medically would not be useful and that dispositioning her to geropsychiatry would be appropriate. Haldol did settle her down and allow her to rest and sleep but only for about an hour then she was up wandering the hallways again refused to stay in bed, pointing becoming very angry with staff if they did not let her get out of bed. Therefore at this point we are giving her another dose of Haldol 5 mg IM. She is medically cleared at this time for crisis to evaluate for geropsychiatry placement and further evaluation. History & Record Review Additional record(s) reviewed:: Prior ED visit Lab Data Attestation: I reviewed the patient's lab results. Labs: Laboratory Results - last 24 hr 12/11/23 12/11/23 12:35 14:25 WBC 5.7 RBC 4.74 Hgb 13.7 Hct 42.6 MCV 89.9 MCH 28.9 MCHC 32.2 RDW Std Deviation 44.2 H RDW Coeff of Jonathan 13.6 Plt Count 159 MPV 11.2 Immature Gran % (Auto) 0.400 Neut % (Auto) 63.6 Lymph % (Auto) 27.5 [place] % (Auto) 6.7 Eos % (Auto) 0.7 Baso % (Auto) 1.1 H Absolute Neuts (auto) 3.6 Absolute Lymphs (auto) 1.57 Nucleated RBC % 0 Sodium 143 Potassium 3.0 L Chloride 106 Carbon Dioxide 29.0 Anion Gap 8 BUN 23 H Creatinine 0.99 Estim Creat Clear Calc 42.82 Est GFR (MDRD) Af Amer 70 Est GFR (MDRD) Non-Af 58 L BUN/Creatinine Ratio 23.2 H Glucose 100 Calcium 9.3 Urine Color Yellow Urine Clarity Clear Urine pH 6.0 Ur Specific [place] 1.020 Urine Protein 15 H Urine Glucose (UA) Normal Urine Ketones 150 A* Urine Occult Blood 25 H Urine Nitrite Negative Urine Bilirubin 1 H Urine Urobilinogen 1 H Ur Leukocyte Esterase Negative Urine RBC 0 SEEN Urine WBC 0 SEEN Ur Squamous Epith Cells 0 SEEN Urine Bacteria 0 SEEN Urine Mucus 2+ Radiography Diagnostic Testing: Clinical Impression(s) from Imaging Studies Brain CT 12/11/23 12:12 IMPRESSION: Chronic involutional changes of the brain. Electronically Signed: David Meier MD at 13:18 EDT , Chest X-Ray 12/11/23 12:55 IMPRESSION: Increased markings at the left lung base with blunting of the left costo phrenic angle. Early infiltrate and/or atelectasis should be ruled out. Electronically Signed: David Meier MD at 13:17 EDT , Rhythm Strip Rhythm Strip: Sinus Rhythm Rate: 75 Ectopy: None Management Discussion w/another healthcare provider: recording studio set up worker/Case management and Other (internal medicine) Discharge Plan Triage Chief Complaint: Complaint ED Provider: Archie Grace Dx/Rx/DC Orders Clinical Impression: Dementia with behavioral disturbance Prescriptions: No Action simvastatin 20 mg tablet 20 mg PO DAILY escitalopram oxalate [Lexapro] 20 mg tablet 20 mg PO DAILY memantine 28 mg capsule,sprinkle,ER 24hr 28 mg PO DAILY Qty: 30 4RF mirtazapine 30 mg tablet 30 mg PO QHS Qty: 30 4RF hydrochlorothiazide 25 MG tablet 25 mg PO DAILY pantoprazole 40 mg tablet,delayed release (DR/EC) 40 mg PO DAILY docusate sodium 100 mg capsule 100 mg PO BID sulfamethoxazole-trimethoprim [sulfamethoxazole-trimethoprim] 800-160 mg tablet 1 tab PO BID Patient Comments: RECENTLY NEW PRESCRIBED RX THAT HAS BEEN FILLED AND PICKED UP. HAS NOT BEEN STARTED YET ( OF 12/11/23) Rx Instructions: TAKE ONE TABLET BY MOUTH TWICE DAILY FOR 7 DAYS. donepezil 10 mg tablet 10 mg PO QAM Qty: 90 1RF Primary Care Provider: Veronika Austin Referrals: Veronika Austin MD [Primary Care Provider] -
[2023-12-11 12:40] LABS: Absolute Lymphocyte Count 1.57 X10^3/uL (0.83-4.51); Absolute Neutrophil Count 3.6 X10^3/uL (2.0-7.7); Basophil# 0.06 X10^3/uL; Basophil% 1.1 % (0-1); Eosinophil# 0.04 X10^3/uL; Eosinophils% 0.7 % (0-5); Hematocrit 42.6 % (37-47); Hemoglobin 13.7 g/dL (12.0-15.0); Lymphocyte # 1.57 X10^3/ul (0.83-4.51); Lymphocyte % 27.5 % (19-41); Mean Corp Hgb Conc 32.2 g/dL (32-36); Mean Corpuscular Hgb 28.9 pg (27.0-32.0); Mean Corpuscular Volume 89.9 fL (81-99); Mean Platelet Vol. 11.2 fl (6.2-12.0); Monocyte# 0.38 X10^3/uL; Monocyte% 6.7 % (0-10); NRBC Flagged by Analyzer 0 % (0-5); Neutrophil # 3.64 X10^3/uL (2.7-7.7); Neutrophil % 63.6 % (47-70); Platelet Count 159 K/mm3 (150-450); RBC Distribution Width CV 13.6 % (11.6-14.6); RBC Distribution Width SD 44.2 fl (35.1-43.9); Red Blood Count 4.74 M/mm3 (4.2-5.4); White Blood Count 5.7 K/mm3 (4.4-11.0)
[2023-12-11] MEDS: 0.9% Normal Saline (1000mL) 1,000 ML 250 ML IV (12:47)
[2023-12-11 12:53] LABS: Anion Gap 8 (5-15); BUN 23 mg/dL (7-18); BUN/Creat Ratio 23.2 RATIO (10-20); Calcium,Total 9.3 mg/dL (8.5-10.1); Chloride 106 mmol/L (98-107); Creatinine, Serum 0.99 mg/dL (0.55-1.02); EST Glomerular Filtration Rate 58 mL/min (>60); Est Glom Filt Rate - Afr Amer 70 mL/min (>60); Estimated Creatinine Clearance 42.82 ml/min; Glucose 100 mg/dL (74-106); Sodium Level 143 mmol/L (136-145)
--- NOTE | 2023-12-11 12:55 | RAD_ITS ---
STUDY: X-RAY CHEST REASON FOR EXAM: Female, 77 years old. Altered mental status TECHNIQUE: AP and lateral views of the chest. COMPARISON: None. FINDINGS: Findings suggestive of a left basilar atelectasis and/or infiltrate. Blunting of the left costophrenic angle. Normal size heart. Normal mediastinum and pati. Normal visualized pulmonary arteries. There is atherosclerotic calcification of the aortic arch with tortuosity. Normal visualized thoracic spine. Normal visualized ribs, clavicles, and shoulders. There is no demonstrated abnormality of the visualized soft tissue structures of the upper abdomen. RAD/Chest PA and Lateral IMPRESSION: Increased markings at the left lung base with blunting of the left costo phrenic angle. Early infiltrate and/or atelectasis should be ruled out. Electronically Signed: David Meier MD at 13:17 EDT ,
[2023-12-11 14:30] LABS: Bacteria 0 SEEN /hpf (None Seen); Red Blood Cells-Urine 0 SEEN /hpf (0-5); Squamous Epithelial Cells - UA 0 SEEN /hpf (5-10); White Blood Cells 0 SEEN /hpf (0-5)
[2023-12-11] MEDS: Ceftriaxone 1 GM/50 ML BAG IV (14:33)
[2023-12-11 14:35] LABS: Color, Urine Yellow (Yellow); Glucose, Dipstick Normal (Normal); Leukocyte Esterase-Dipstick Negative /ul (Negative); Nitrite-Dipstick Negative (Negative); Occult Blood-Urine 25 /ul (Negative); Protein-Dipstick 15 mg/dl (Negative); Urine Clarity Clear (Clear); Urine Urobilinogen 1 mg/dl (Normal)
[2023-12-11 14:41] LABS: Urine Bilirubin Dipstick 1 mg/dL (Negative)
[2023-12-11 14:42] LABS: Ketone-Dipstick 150 mg/dl (Negative)
[2023-12-11] MEDS: Haloperidol Lactate 5 MG/ML Vial 2 MG IM (15:01)
--- NOTE | 2023-12-11 15:08 | ED.RN ---
Pt becoming increasingly agitated, attempting to leave room, resisting care. and staff unable to redirect. MD aware, meds ordered and administered.
--- NOTE | 2023-12-11 15:25 | ED.RN ---
Unable to hang IV Potassium due to pt agitation. Unable to keep pt in bed or room, staff ambulating pt up and down hallways.
[2023-12-11 15:45] LABS: Mucous, Urine 2+ /hpf (<or=2+)
[2023-12-11] MEDS: Potassium Chloride 10mEq/100mL 10 MEQ/100 ML IV.SOLN. 100 MEQ IV BOLUS (16:17)
[2023-12-11] MEDS: Haloperidol Lactate 5 MG/ML Vial IM ×2 (17:12→20:30)
[2023-12-11 17:32] LABS: Magnesium 1.9 mg/dL (1.6-2.6); Phosphorus 2.7 mg/dL (2.5-4.9)
--- NOTE | 2023-12-12 03:03 | ED.RN ---
Declined to [facility] d/t them not having a gabrielle psych unit and do not accept dementia pts.
[2023-12-12 04:16] VITALS: PULSE 78; RESP 18; O2SAT 96
[2023-12-12 12:00] VITALS: BP 132/78; PULSE 64; RESP 14; TEMP 36.6; O2SAT 98
[2023-12-12 15:31] VITALS: BP 129/70; PULSE 78; RESP 18; TEMP 36.6; O2SAT 96
== END 2023-12-12 15:34 ==
PROVIDERS: Emergency Provider Emergency Medicine; PCP Internal Medicine; Visit Provider Emergency Medicine
DX: F03.918 Unspecified dementia, unspecified severity, with other behavioral disturbance (principal); G47.30 Sleep apnea, unspecified; K21.9 Gastro-esophageal reflux disease without esophagitis; E78.5 Hyperlipidemia, unspecified; Z79.899 Other long term (current) drug therapy
CPT/HCPCS: 70450; 71046; 80048; 81001; 83735; 84100; 85025; 87631; 96365; 96367; 96372; 99285; J7030; J7040; A4216